=== PATIENT | female | born 1945 | race Caucasian/White ===

== ENCOUNTER 2016-10-31 19:21 | Inpatient (IN) | payer MEDICARE, OTHER ==
[~2016-10-31] VITALS: Ht 165.1 cm; Wt 50.3 kg
--- NOTE | ~2016-10-31 | CN ---
PATIENT NAME:CULLEN FINK MEDICAL RECORD: [id number] : 43 LOCATION:D[id number] ADMIT DATE: 10/31/16 ACCOUNT: [id number] CONSULTING PHYSICIAN: LAM OTTO MD REFERRING PHYSICIAN: JAZMYN JIMENEZ MD DATE OF CONSULTATION: 11/01/2016 CONSULT REQUESTING PHYSICIAN: Jazmyn Jimenez MD REASON FOR CONSULTATION: COPD and right hip fracture. 1 HISTORY OF PRESENT ILLNESS: Ms. Fink is a 71-year-old female who has a history of COPD as well as a history of CA of the lung, probably seeing Dr. Singletary. She was diagnosed a few years ago. She got chemotherapy. The patient was brought into the ER after having a fall and complaining of pain in the right hip. She having a diagnosis of the right hip fracture and she is scheduled for surgery tomorrow. Today, the patient was very weak and lethargic. ABG was done and her CO2 was about 60. REVIEW OF SYSTEMS: Mainly in the history of present illness. PAST MEDICAL HISTORY: 1. Hypertension. 2. History of atrial fibrillation. 3. Peripheral vascular disease. 4. Hyperlipidemia. 5. History of chronic obstructive pulmonary disease. 6. History of lung cancer. 7. Ex-smoker. PAST SURGICAL HISTORY: 1. Cataract surgery. 2. Hysterectomy. 3. Bilateral femoropopliteal bypass surgery and stent placement. ALLERGIES: SHE IS ALLERGIC TO PENICILLIN AND SULFA. PRESENT MEDICATION: She is on aspirin, omega, Plavix, Motrin, sertraline, Halcion. PERSONAL AND SOCIAL HISTORY: The patient is an ex-smoker. She is a nondrinker. FAMILY HISTORY: Significant for cardiovascular disease. PHYSICAL EXAMINATION: GENERAL: Now, the patient is lying comfortably at bed. She is very sleepy, but she is arousable. VITAL SIGNS: The blood pressure is 136/61, pulse is 75, respiration is 18, temperature 98.8, SpO2 of 96% on 2 liters nasal cannula. HEENT: Conjunctivae pink, sclerae nonicteric. NECK: Supple, no JVD. CHEST: Excursion is minimal on both sides. There is no wheeze, no rales. HEART: Rhythm regular, normal sound, no murmur. ABDOMEN: Soft. Bowel sounds present. No hepatosplenomegaly. RECTAL: Deferred. CONSULT REPORT [id number] CULLEN FINK EXTREMITIES: No cyanosis, no clubbing, no pedal edema. SKIN: Warm, normal turgor. CENTRAL NERVOUS SYSTEM: The patient is sleepy, but she is arousable. There are no obvious cranial abnormalities. The patient's PT oriented. LABORATORY DATA: ABG: The pH is 7.2, pCO2 is 59, pO2 is 67, bicarb 24.8. CBC: WBC 11.8, hemoglobin 12.9, hematocrit 38.2, platelet count 252. Sodium 137, potassium 3.6, BUN is 15, creatinine is 0.9. Liver enzymes within normal range. CK is 556, MB is normal. Troponin is normal. IMPRESSION: 1. Acute hypercapnic hypoxic respiratory failure most likely secondary to narcotics as well as underlying chronic obstructive pulmonary disease. 2. Respiratory acidosis secondary to #1. 3. Chronic obstructive pulmonary disease without exacerbation. 4. Fracture of right hip. 5. Alcoholism. 6. History of cancer of the lung. 7. Ex-smoker. RECOMMENDATION: 1. Continue albuterol and ipratropium nebulizer. 2. Start on Brovana and budesonide nebulizer. 3. DVT prophylaxis. 4. The narcotics to minimum to the pain control. 5. Watch for DTs and multivitamin. Being unknown, her chronic status as well as hypercapnia, the patient high risk for perioperative complications with general anesthesia. I will prefer spinal anesthesia compared to general anesthesia, watch closely for CO2 narcosis perioperatively. Dr. Jimenez, once again thanks for involving me in the care of Ms. Fink. TRANSINT:[id number] Voice Confirmation ID: [id number] DOCUMENT ID: [id number] LAM OTTO MD CC: JAZMYN JIMENEZ MD [id number] DICTATION DATE: 11/01/16 1428 BALLOON MAKER: 11/02/16 0254 ADM IN [facility] [address] [place] [address]
[~2016-10-31 19:21] MED LIST: ASPIRIN325 MG PO; BAYER CHEWABLE81 MG PO; EFFEXOR75 MG PO; HALCION0.25 MG PO; HYDROCHLOROTHIA25 MG PO; HYDROCODONE-APA1 TAB PO; IBUPROFEN400 MG PO; K-DUR20 MEQ PO; MEGARED; MOTRIN IB PO; NORCO 5/325 TAB1 TA1 PO; NORVASC5 MG PO; OMEGA-3100 MG PO; PHENERGAN6.25 MG/5 PO; PLAVIX75 MG PO; ZOCOR20 MG PO; ZOFRAN4 MG PO; ZOLOFT50 MG PO
[2016-10-31 20:16] LABS: BASOPHILS 0.5 % (0-2); EOSINOPHILS 1.5 % (0-7); HEMATOCRIT 38.2 % (36.0-48.0); HEMOGLOBIN 12.9 g/dL (12-16); IMMATURE GRANULOCYTES 0.4 % (0-5); LYMPHOCYTES 16.1 % (15-50); MCH 35.6 pg (26.0-34.0); MCHC 33.8 g/dL (31.0-37.0); MCV 105.5 fL (80.0-100.0); MEAN PLATELET VOLUME 9.8 fL (7.4-10.4); MONOCYTES 6.3 % (2-11); NEUTROPHILS 75.2 % (40-80); RBC 3.62 10x6/uL (4.00-5.40); RDW 15.6 % (11.5-14.5); WBC 11.8 10x3/uL (4.8-10.8)
[2016-10-31 20:17] LABS: PLATELET COUNT 252 10x3/uL (130-400)
[2016-10-31 20:33] LABS: ALKALINE PHOSPHATASE 69 U/L (46-116); ALT (SGPT) 28 U/L (10-68); BILIRUBIN - TOTAL 0.33 mg/dL (0.2-1.3); CALC OSMOLALITY 273 mosm/kg (275-300); CALCIUM 9.1 mg/dL (8.5-10.1); CARBON DIOXIDE 25.3 mmol/L (21.0-32.0); CHLORIDE - SERUM 100 mmol/L (98-107); CREATININE - SERUM 0.9 mg/dL (0.6-1.3); GLUCOSE 88 mg/dL (74-106); POTASSIUM - SERUM 3.6 mmol/L (3.5-5.1); PROTEIN - SERUM 7.3 g/dL (6.4-8.2); SODIUM 137 mmol/L (136-145); UREA NITROGEN 15 mg/dL (7-18); eGFR NON AFRICAN AMERICAN 65 mL/min (90-120)
[2016-10-31 20:54] LABS: CREATINE KINASE 556 UL (21-215); MAGNESIUM - SERUM 1.7 mg/dL (1.8-2.4)
[2016-10-31 20:55] LABS: TROPONIN-I < 0.017 ng/mL (0.000-0.060)
[2016-10-31 20:56] LABS: CKMB 8.3 U/L (0.0-3.6)
[2016-10-31 21:28] LABS: UDS - AMPHET NEGATIVE QUAL (NEGATIVE); UDS - BARB NEGATIVE QUAL (NEGATIVE); UDS - BENZO NEGATIVE QUAL (NEGATIVE); UDS - COCAINE NEGATIVE QUAL (NEGATIVE); UDS - METH NEGATIVE QUAL (NEGATIVE); UDS - OPIATE NEGATIVE QUAL (NEGATIVE); UDS - PCP NEGATIVE QUAL (NEGATIVE); UDS - THC NEGATIVE QUAL (NEGATIVE)
--- NOTE | 2016-10-31 22:35 | NUR ---
REC'D PER STRETCHER TO ROOM 2223 A 71 Y/O W/F PER SERVICES DR. JIMENEZ/MARTA WITH FX RT FEMUR NECK AND RT SHOULDER PAIN. ALERT/ORIENTED X3 SALINE LOCK PATENT LEFT ARM. SR UP X2 CALL LIGHT WITHIN REACH CERVANTES TO BS DRAINAGE WITH YELLOW UA. PLACE BED ALARM BOX ON PATIENT AND MARY LEFT OPENED YELLOW BAND ON PT AND YELLOW LABEL ON DOOR FOR FALL PRECAUTIONS.ASSESMENT PER ADMIT PACKET.
[2016-10-31 22:57] VITALS: BP 136/56; BMI 18.6
--- NOTE | 2016-10-31 23:23 | NUR ---
IV FLUIDS OF D5LR STARTED AT 50CC'S/HR FUNERAL ARRANGEMENT DIRECTOR OF DILAUDID STARTED WITH SETTINGS AT 0.2MG Q10MIN W/4MG Q4H L/O INSTRUCTED PATIENT ON USAGE.
[2016-11-01] VITALS: BP 136/56
--- NOTE | 2016-11-01 | NUR ---
NPO AT THIS TIME FOR POSSIBLE SURGERY TOMORROW.
--- NOTE | 2016-11-01 01:55 | NUR ---
EYES CLOSED RESPIRATIONS WITH EASE AND UNLABORED.
[2016-11-01 04:00] VITALS: BP 136/61
--- NOTE | 2016-11-01 04:49 | NUR ---
PATIENT SLIGHTLY CONFUSED AND HARD OF HEARING NOTED. UNSURE OF YEAR KNOWS NAME OF HOSPITAL. 5 LBS FELTON'S TRACTION PLACED TO RT LOWER EXTREMITY. BED ALARM BOX ON.
--- NOTE | 2016-11-01 06:30 | NUR ---
COMPLETE BED BATH DONE FOR SURGHERY PROCEDURE. NO CHANGES IN ASSESSMENT
--- NOTE | 2016-11-01 07:20 | NUR ---
PATIENT RECEIVED IN LEFT LATERAL POSITION IN BED WITH PCP AT BEDSIDE. PATIENT REPOSITIONED IN BED. BUCKS TRACTION TO RIGHT LEG. JOSE ALARM PLACED ON BED AND ALARM TURNED ON. SIDE RAILS UP X3. BED IN LOW POSITION. CALL LIGHT IN REACH.
[2016-11-01 07:58] VITALS: BP 125/51
--- NOTE | 2016-11-01 09:22 | NUR ---
PATIENT IN BED RESTING QUIETLY WITH EYES CLOSED. RESPIRATIONS EVEN AND UNLABORED. WAKES EASY. AT BEDSIDE. SCHEDULED MEDICATION ADMINISTERED. SIDE RAILS UP X2. BED IN LOW POSITION. CALL LIGHT IN REACH.
[2016-11-01 10:10] LABS: APTT 26.8 SECONDS (22.8-39.4); INR 1.03 (0.85-1.17); PROTIME 13.3 SECONDS (11.6-15.0)
--- NOTE | 2016-11-01 10:15 | NUR ---
PATIENT REPOSITOINED IN BED. WELL TOLERATED. DENIES NEEDS. SCD TO LEFT LEG. USE EXPLAINED TO PATIENT AND . STATES UNDERSTANDING. SIDE RAILS UP X2. BED IN LOW POSITION. CALL LIGHT IN REACH.
--- NOTE | 2016-11-01 11:10 | NUR ---
PATIENT IN BED RESTING QUIETLY WITH EYES CLOSED. WAKES EASY. AT BEDSIDE AND SIGNED CONSENT FOR SURGERY SCHEDULED ON 11/02/16. SIDE RAILS UP X3. BED IN LOW POSITION. CALL LIGHT IN REACH. CATTLE CARE WORKER BUTTON IN HAND.
--- NOTE | 2016-11-01 12:00 | NUR ---
VITAL SIGNS ARE FOLLOWS TEMP 96.6, BP 114/45, PULSE 71, RR 20 AND O2 85% ON 4L O2 VIA NASAL CANNULA. O2 INCREASED TO 5L NC. KEESHA MCKENNA AT BEDSIDE. PERIODS OF APNEA NOTED. NARCAN ADMINISTERED AND PCP NOTIFIED. ORDERS FOR AIX SYSTEM ADMINISTRATOR CHANGED AND WITNESSED WITH 2 NURSES. PATIENT NOW MORE ALERT IN BED AND TALKING. O2 INCREASED TO 98% ON 4L OXYGEN VIA NASAL CANNULA
--- NOTE | 2016-11-01 12:05 | NUR ---
CO2 END TIDAL MONITOR PLACED ON PATIENT.
[2016-11-01 12:34] VITALS: BP 114/45
[2016-11-01 15:04] VITALS: Ht 165.1 cm; Wt 50.3 kg
[2016-11-01 16:03] VITALS: BP 100/51
--- NOTE | 2016-11-01 16:20 | NUR ---
PATIENT IN LOW SORENSEN POSITION RESTING WITH EYES CLOSED. RESPIRATIONS EVEN AND UNLABORED. WAKES EASY. SIDE RAILS UP X3. BED IN LOW POSITION. CALL LIGHT IN REACH. JOSE ALARM ON.
[2016-11-01 18:43] LABS: APPEARANCE CLOUDY (CLEAR); BILIRUBIN NEGATIVE (NEGATIVE); COLOR BROWN (YELLOW); GLUCOSE NEGATIVE (NEGATIVE); KETONE NEGATIVE (NEGATIVE); LEUKOCYTE ESTERASE 1+ (NEGATIVE); NITRITE NEGATIVE (NEGATIVE); PROTEIN 2+ mg/dL (NEGATIVE); UROBILINOGEN NORMAL (NORMAL)
[2016-11-01 18:45] LABS: AMORPHOUS SEDIMENT >1+ /lpf (NONE SEEN); BACTERIA MODERATE /hpf (NONE SEEN); EPITHELIAL CELLS 0-5 /hpf (0-5); GRANULAR CAST 0-5 /lpf (NONE SEEN); HYALINE CAST 0-5 /lpf (NONE SEEN)
--- NOTE | 2016-11-01 19:00 | NUR ---
BEDSIDE REPORT RECEIVED AND CARE OF PT ASSUMED. PT LYING IN SEMI SORENSEN'S POSITION WITH BIPAP IN PLACE. IV IN LEFT FA PATENT WITH D5LR INFUSING AT 75 ML / HR. BLENDER OPERATOR OFF AT THIS TIME. CERVANTES CATHETER DRAINING TO GRAVITY WITH CONCENTRATED URINE W/ SEDIMENT IN COLLECTION BAG. BED ALARM IN USE.
[2016-11-01 20:00] VITALS: BP 113/48
--- NOTE | 2016-11-01 20:00 | NUR ---
FELTON'S TRACTION IN USE WITH 5 LB WEIGHT.
[2016-11-02] VITALS (12 sets, daily range): BP systolic 85–148; BP diastolic 40–74
--- NOTE | 2016-11-02 00:05 | NUR ---
PT RESTING QUIETLY AT THIS TIME. BIPAP IN USE. WILL CONTINUE TO MONITOR CLOSLEY. BED ALARM IN USE.
--- NOTE | 2016-11-02 00:06 | NUR ---
NPO STATUS BEGINS NOW FOR AM PROCEDURE.
--- NOTE | 2016-11-02 05:17 | NUR ---
IV LEAKING. REMOVED WITH CATHETER TIP INTACT. RE-SITED TO LEFT AC USING 20 GUAGE CATHETER IN ONE STICK. IV FLUIDS AND HEADING MAKER RE-STARTED.
[2016-11-02 06:33] LABS: BASOPHILS 0.1 % (0-2); EOSINOPHILS 0.5 % (0-7); HEMATOCRIT 33.3 % (36.0-48.0); HEMOGLOBIN 10.6 g/dL (12-16); IMMATURE GRANULOCYTES 0.4 % (0-5); LYMPHOCYTES 7.8 % (15-50); MCHC 31.8 g/dL (31.0-37.0); MEAN PLATELET VOLUME 10.4 fL (7.4-10.4); MONOCYTES 5.9 % (2-11); NEUTROPHILS 85.3 % (40-80); PLATELET COUNT 226 10x3/uL (130-400); RBC 3.03 10x6/uL (4.00-5.40); RDW 15.8 % (11.5-14.5)
[2016-11-02 06:50] LABS: MCV 109.9 fL (80.0-100.0)
[2016-11-02 07:09] LABS: ALBUMIN 3.3 g/dL (3.4-5.0); BILIRUBIN - TOTAL 0.71 mg/dL (0.2-1.3); CALCIUM 8.1 mg/dL (8.5-10.1); CARBON DIOXIDE 31.3 mmol/L (21.0-32.0); PROTEIN - SERUM 6.4 g/dL (6.4-8.2)
[2016-11-02 07:15] LABS: ANION GAP 9.2 mmol/L (8-16); CREATININE - SERUM 1.2 mg/dL (0.6-1.3); POTASSIUM - SERUM 4.5 mmol/L (3.5-5.1)
--- NOTE | 2016-11-02 07:15 | NUR ---
PATIENT RECEIVED ALERT IN LOW SORENSEN POSITION. NO SIGNS OF DISTRESS NOTED. BIPAP IN PLACED. DENIES NEEDS. SIDE RAILS UP X2. BED IN LOW POSITION. CALL LIGHT AND DIRECTOR OF VITAL STATISTICS BUTTON IN REACH.
--- NOTE | 2016-11-02 08:00 | NUR ---
PATIENT ALERT IN BED. RESPIRATIONS EVEN AND UNLABORED. SCHEDULED PO MEDICATION HELD FOR SURGERY. IV MEDICATION ADMINISTERED PER ORDERS. DENIES NEEDS. SIDE RAILS UP X2. BED IN LOW POSITION. CALL LIGHT IN REACH. JOSE ALARM ON.
--- NOTE | 2016-11-02 11:20 | NUR ---
PATIENT ALERT IN HIGH SORENSEN POSITION WITH AT BEDSIDE. SIDE RAILS UP X2. BED IN LOW POSITION. JOSE ALARM ON. CALL LIGHT IN REACH. WOOD EXPERIMENTAL MECHANIC BUTTON IN HAND.
--- NOTE | 2016-11-02 12:55 | NUR ---
PATIENT OFF FLOOR TO SURGERY VIA BED
--- NOTE | 2016-11-02 15:02 | NUR ---
PILLOW BETWEEN PTS ARMS
--- NOTE | 2016-11-02 16:35 | NUR ---
PATIENT BACK TO ROOM FROM PACU VIA BED. NO SIGNS OF DISTRESS NOTED. VITAL SIGNS STABLE. PATIENT ALERT AND TALKING TO FAMILY. DRESSING TO RIGHT HIP CLEAN, DRY AND INTACT. SIDE RAILS UP X2. BED IN LOW POSITION. CALL LIGHT IN REACH. SCDS ON BILATERALLY. JOSE ALARM ON.
--- NOTE | 2016-11-02 16:42 | NUR ---
PT ARRIVED WITH RINGS X [address] NICKOLAS EXPLAINED THE CAUTERY TO THE PT AND THE OPPORTUNITY FOR VALERO FROM THIS EQUIPMENT. THE PT THEN CHOSE TO HAVE THE RINGS CUT OFF. THIS WAS DONE AND THEY WERE HAND DELIVERED TO HER PER NICKOLAS
--- NOTE | 2016-11-02 17:32 | NUR ---
CM: Patient lives at home with spouse. 2 steps into the home. The neighbor Abiodun will transport patient home, Abiodun #[phone] (hears better). EMERGENCY CONTACT: #[phone] (spouse) Bartolo. PCP: Dr Wan. Pharmacy: [facility]. Independent with ADL's. Needs medication management. HHS: None at this time. Spouse is unsure if needs to go home with HHS or in-pt Rehab. DME: Will obtain equipement [facility] upon discharge. Communtiy Services utilized: None at present. Additional services required to return to preadmission environment? Yes. HHS or in-patient Rehab. Can the patient safely return to the preadmission environment? Yes. Has the patient been hospitalized within the prior 30 days at any hospital? No.
--- NOTE | 2016-11-02 18:00 | NUR ---
PATIENT RESTING QUIETLY WITH EYES CLOSED. RESPIRATIONS EVEN AND UNLABORED. VITAL SIGNS STABLE. BIPAP IN PLACED. SIDE RAILS UP X2. BED IN LOW POSITION. CALL LIGHT IN REACH.
--- NOTE | 2016-11-02 23:00 | NUR ---
PATIENT RESTING IN BED WITH EYES CLOSED AND NO VISIBLE SIGNS OF DISTRESS. PATIENT'S BED IN LOWEST POSITION, CALL LIGHT WITHIN REACH, AND BOX ALARM ON AND ATTACHED TO THE PATIENT.
[2016-11-03] VITALS (15 sets, daily range): BP systolic 79–111; BP diastolic 37–61
--- NOTE | 2016-11-03 00:19 | NUR ---
PATIENT SLEEPING COMFORTABLY WITH BIPAP ON. NO NEEDS NOTED AT THIS TIME.
[2016-11-03 05:12] LABS: MCHC 31.6 g/dL (31.0-37.0); MCV 110.8 fL (80.0-100.0); RDW 15.8 % (11.5-14.5)
[2016-11-03 05:14] LABS: HEMOGLOBIN 8.4 g/dL (12-16); RBC 2.4 10x6/uL (4.00-5.40); WBC 7.5 10x3/uL (4.8-10.8)
[2016-11-03 05:15] LABS: HEMATOCRIT 26.6 % (36.0-48.0)
--- NOTE | 2016-11-03 07:10 | NUR ---
REPORT RECEIVED FROM SUPERVISORY TRAINING SPECIALIST NURSE. CALL LIGHT IN REACH.
--- NOTE | 2016-11-03 08:40 | NUR ---
ASSESSMENT COMPLETED. SCDs TO BLE. JOSE MAT ALARM ON. CALL LIGHT IN REACH. WILL CONTINUE WITH PLAN OF CARE.
--- NOTE | 2016-11-03 08:48 | OP ---
PATIENT NAME: CULLEN CHAHAL MEDICAL RECORD: [id number] :44 LOCATION:D.[id number] ADMISSION DATE:10/31/16 SURGEON: CHRIS LOZANO MD DATE OF OPERATION: 11/02/2016 Orthopedic Surgery Operative Note PREOPERATIVE DIAGNOSIS: Displaced right hip fracture. POSTOPERATIVE DIAGNOSIS: Displaced right hip fracture. PROCEDURE: Bipolar endoprosthetic replacement for displaced femoral neck fracture. SURGEON: Chris Lozano MD. ANESTHESIA: General. INTRAOPERATIVE COMPLICATIONS: None. SUMMARY OF PATHOLOGIC FINDINGS: The patient had displaced femoral neck fracture consistent with preoperative radiographs. ESTIMATED BLOOD LOSS: 50 cc. OPERATIVE SUMMARY IN DETAIL: After obtaining the appropriate preoperative orthopedic surgery consent as well as anesthetic consultation, evaluation and clearance, the patient was brought to the operating room and placed on the operating table in supine position. After general laryngeal mask was administered, she was placed in a left lateral decubitus position. All pressure points were well padded to include down leg peroneal pad as well as axillary roll. The patient was held firmly to the operating table using the vacuum pack suction system. Right lower extremity and hip were then prepped and draped in a routine sterile fashion. Curvilinear incision made over the IT band. The IT band was split in line with the fibers of the IT band to reveal gluteus medius and minimus attachment to the greater trochanter. These were reflected anteriorly. The hip capsule was split for a T-type fashion for later reapproximation. A femoral neck cut was made using the femoral neck cutting guide for the Accolade TMZF stem. Femoral head was extracted and the acetabulum was cleared free of all fragments. Serial and sequential reaming and broaching were done for a size 4 Accolade TMZF II stem. This was tamped into place. Trials were undertaken and it was felt that the 44- was the most appropriate. A 44- on the 36 head was snapped together, put in place, the Chopra taper tapped and placed, reduced, taken through range of motion and found to be excellent. Intraoperative radiographs were taken at this time showed good position and placement and reestablishment of leg length. The wound was copiously irrigated multiple times. The hip capsule was closed using #2 Ethibond. This was followed by #5 reapproximation of the gluteus medius and minimus in a transosseous fashion back to the greater trochanter. IT band was closed with #2 Ethibond, this was followed by #1 Vicryl, 2-0 Vicryl and skin galdino. Sterile dressings were applied. The patient was awakened, taken to recovery in stable condition. All final needle and sponge counts were correct. TRANSINT:[id number] Voice Confirmation ID: [id number] DOCUMENT ID: [id number] OPERATIVE REPORT [id number] CULLEN CHAHAL MD, CHRIS EMERY at 0848 CC: [id number] DICTATION DATE: 11/02/16 1532 WARP SCOURING VAT TENDER: 11/02/16 2335 ADM IN [facility] [address] [place] [address]
[2016-11-03] MEDS ORDERED: MEGACE40 MG PO (09:24)
--- NOTE | 2016-11-03 10:17 | NUR ---
AM MEDS ADMINISTERED. HELD BP MEDS D/T BP OF 104/45.
--- NOTE | 2016-11-03 11:58 | NUR ---
SITTING IN CHAIR PER PT.
--- NOTE | 2016-11-03 12:09 | NUR ---
VANCOMYCIN IVPB PER ORDER. WILL START IV AFTERWARDS.
--- NOTE | 2016-11-03 13:05 | NUR ---
C/O PAIN OF 7. NORCO PO. CALL LIGHT IN REACH.
--- NOTE | 2016-11-03 14:21 | NUR ---
PT AOX4 RESP EVEN AND NONLABORED PT HERE FOR RIGHT TOTAL HIP REPLACEMENT IV TO LEFT FOREARM PATENT AND INTACT PT DENIES NEEDS AT THIS TIME SRX2 CALL LIGHT WITHIN REACH WILL CONTINUE TO MONITOR
--- NOTE | 2016-11-03 14:30 | NUR ---
PRBC UNIT 1 INITIATED PER KEESHA GODWIN. BP 80/42. WILL UP TO 150 CC/HR. WILL MONITOR VSS.
--- NOTE | 2016-11-03 16:20 | NUR ---
NO NEEDS VOICED AT THIS TIME. CALL LIGHT IN REACH.
--- NOTE | 2016-11-03 18:10 | NUR ---
BLOOD COMPLETED. NO OTHER CHANGES IN INITIAL ASSESSMENT. CALL LIGHT IN REACH. BP NOW 97/61. JOSE MAT ON. SCDs TO BLE. AT BEDSIDE. CALL LIGHT IN REACH. WILL CONTINUE WITH PLAN OF CARE.
--- NOTE | 2016-11-04 03:48 | NUR ---
PT. IN BED WITH HOB UP FOR COMFORT AND LYING ON HER LEFT SIDE. EYES ARE CLOSED AND RESP. DEEP AND EVEN. IV INFUSING VIA PUMP WITHOUT ANY ALARMS. CALL LIGHT REMAINS WITHIN REACH.
[2016-11-04 04:00] VITALS: BP 102/50
[2016-11-04 05:39] LABS: BASOPHILS 0.2 % (0-2); EOSINOPHILS 0.2 % (0-7); HEMOGLOBIN 9.5 g/dL (12-16); IMMATURE GRANULOCYTES 0.3 % (0-5); LYMPHOCYTES 7.3 % (15-50); MCH 34.4 pg (26.0-34.0); MCHC 32.8 g/dL (31.0-37.0); MONOCYTES 8.9 % (2-11); NEUTROPHILS 83.1 % (40-80); PLATELET COUNT 204 10x3/uL (130-400); RBC 2.76 10x6/uL (4.00-5.40); RDW 16.2 % (11.5-14.5); WBC 8.7 10x3/uL (4.8-10.8)
[2016-11-04 05:43] LABS: MCV 105.1 fL (80.0-100.0)
[2016-11-04 05:57] LABS: ANION GAP 10.1 mmol/L (8-16); CALCIUM 7.7 mg/dL (8.5-10.1); CARBON DIOXIDE 28.6 mmol/L (21.0-32.0)
[2016-11-04 05:58] LABS: CREATININE - SERUM 0.8 mg/dL (0.6-1.3); POTASSIUM - SERUM 3.7 mmol/L (3.5-5.1)
[2016-11-04 07:00] VITALS: BP 117/50
--- NOTE | 2016-11-04 07:00 | NUR ---
REPORT RECEIVED FROM SIGNAL FITTER NURSE. CALL LIGHT IN REACH.
--- NOTE | 2016-11-04 08:57 | NUR ---
PATIENT ALERT IN HIGH SORENSEN POSITION. RESPIRATIONS EVEN AND UNLABORED. SIDE RAILS UP X2. BED IN LOW POSITION. CALL LIGHT IN REACH. DENIES NEEDS.
--- NOTE | 2016-11-04 09:34 | NUR ---
ASSESSMENT COMPLETED. NORCO PO WITH AM MEDS ADMINISTERED. SCDs APPLIED TO BLE. CERVANTES CATH DC'D WITH TIP INTACT. CERVANTES CATH DC'D WITH TIP INTACT. JOSE MAT ON. CALL LIGHT IN REACH. WILL CONTINUE WITH PLAN OF CARE.
--- NOTE | 2016-11-04 11:20 | NUR ---
NO NEEDS VOICED AT THIS TIME. CALL LIGHT IN REACH.
[2016-11-04 12:32] VITALS: BP 141/49
--- NOTE | 2016-11-04 13:35 | NUR ---
IN ROOM. DENIES NEEDS AT THIS TIME. CALL LIGHT IN REACH.
--- NOTE | 2016-11-04 14:21 | NUR ---
Rehab Note- Acute Rehab Prescreen order received. The patinet is post op day #2. Wlll plan on admitting to [facility] Saturday if ready for discharge from the acute hospital. Thank you for this referral! Liv Yi RN Clinical Liaison, [facility] Rehab/[place]
--- NOTE | 2016-11-04 14:51 | NUR ---
ASSISTED TO BR AND BACK TO BED PER GLAZIER APPRENTICE.
--- NOTE | 2016-11-04 14:55 | NUR ---
ASSISTED TO BR AND BACK TO BED PER VOLUNTEER PATIENT REPRESENTATIVE. I HELPED WITH REPOSITIONING HER IN THE BED. STATES PAIN IS A 9. NORCO PO. AT BEDSIDE. CALL LIGHT IN REACH.
[2016-11-04 14:57] VITALS: BP 108/54
--- NOTE | 2016-11-04 16:40 | NUR ---
RESTING WITH EYES CLOSED. RESP EVEN AND UNLABORED. CALL LIGHT IN REACH.
--- NOTE | 2016-11-04 18:32 | NUR ---
REQUESTING PAIN PILL. NORCO PO. NO CHANGES IN INITIAL ASSESSMENT. CALL LIGHT IN REACH. WILL CONTINUE WITH PLAN OF CARE.
--- NOTE | 2016-11-04 19:08 | NUR ---
HAS GONE TO THE BR TWICE AFTER CERVANTES WAS REMOVED.
[2016-11-04 20:00] VITALS: BP 99/48
--- NOTE | 2016-11-04 22:16 | NUR ---
PATIENT RESTING IN BED AND DENIES NEEDS AT THIS TIME. BED IN LOWEST POSITION AND CALL LIGHT WITHIN REACH. ENCOURAGED THE PATIENT TO CALL IF SHE HAS FURTHER NEEDS.
[2016-11-05] VITALS: BP 100/49
--- NOTE | 2016-11-05 03:21 | NUR ---
RESTING WELL AT THIS TIME. NO C/O NOTED. C/L IN REACH AT BEDSIDE.
[2016-11-05 04:00] VITALS: BP 102/55
[2016-11-05 06:17] LABS: BASOPHILS 0.1 % (0-2); EOSINOPHILS 0.4 % (0-7); HEMOGLOBIN 9.2 g/dL (12-16); IMMATURE GRANULOCYTES 0.2 % (0-5); LYMPHOCYTES 9.2 % (15-50); MCHC 34.1 g/dL (31.0-37.0); MEAN PLATELET VOLUME 10.1 fL (7.4-10.4); MONOCYTES 9.4 % (2-11); NEUTROPHILS 80.7 % (40-80); RBC 2.63 10x6/uL (4.00-5.40); RDW 16.2 % (11.5-14.5); WBC 9.1 10x3/uL (4.8-10.8)
[2016-11-05 06:26] LABS: MCV 102.7 fL (80.0-100.0); PLATELET COUNT 255 10x3/uL (130-400)
[2016-11-05 06:47] LABS: CALCIUM 7.9 mg/dL (8.5-10.1); CREATININE - SERUM 0.8 mg/dL (0.6-1.3)
--- NOTE | 2016-11-05 07:05 | NUR ---
PATIENT RECEIVED ALERT IN HIGH SORENSEN POSITION. RESPIRATIONS EVEN AND UNLABORED. SIDE RAILS UP X2. BED IN LOW POSITION. CALL LIGHT IN REACH. DENIES NEEDS. JOSE ALARM ON.
[2016-11-05 07:38] VITALS: BP 131/56
--- NOTE | 2016-11-05 08:47 | NUR ---
PATIENT ALERT IN BED. TOLERATED BREAKFAST WITHOUT DIFFICULTY. SCHEDULED MEDICATION ADMINISTERED. SIDE RAILS UP X2. BED IN LOW POSITION. CALL LIGHT IN REACH. JOSE ALARM ON.
[2016-11-05] MEDS ORDERED: IPRAT-ALBUT 0.5-3 ML UPD (09:35)
[2016-11-05] MEDS ORDERED: BROVANA15 MCG/2 M INH (09:35)
[2016-11-05] MEDS ORDERED: ELIQUIS2.5 MG PO (09:36)
[2016-11-05] MEDS ORDERED: LIBRIUM25 MG PO (09:47)
[2016-11-05] MEDS ORDERED: MULTIPLE VITAMI1 TA1 PO (09:48)
[2016-11-05] MEDS ORDERED: HYDROCODONE-APA1 TAB PO (09:48)
[2016-11-05] MEDS ORDERED: PULMICORT0.5 MG/21 INH (09:49)
--- NOTE | 2016-11-05 10:05 | NUR ---
CM REASSESSMENT NOTE: PATIENT IS DISCHARGING TO IP REHAB TODAY. FAMILY AWARE
[2016-11-05] MEDS ORDERED: ZOCOR20 MG PO (11:08)
--- NOTE | 2016-11-05 11:15 | NUR ---
SITTING UP IN CHAIR AT BEDSIDE VISITING WITH FAMILY. NO SIGNS OF DISTRESS NOTED. DENIES NEEDS. CALL LIGHT IN REACH.
--- NOTE | 2016-11-05 13:25 | NUR ---
ASSISTED BACK TO BED BY PT. JOSE ALARM ON. SIDE RAILS UP X2. BED IN LOW POSITION. CALL LIGHT IN REACH. FAMILY AT BEDSIDE.
[2016-11-05 13:35] VITALS: BP 99/52
--- NOTE | 2016-11-05 14:50 | NUR ---
REPORT CALLED TO REHAB. KEESHA MOREIRA RECEIVED REPORT.
--- NOTE | 2016-11-05 15:01 | NUR ---
[facility]
== END 2016-11-05 15:01 | DRG 469 ==
LOC: D.ER 19:21 → D.MS 21:16
PROVIDERS: Anesthesiology; Emergency Medicine; Orthopaedic Surgery; ADMIT Family Medicine
PROC: 0SRR0JZ Replacement of Right Hip Joint, Femoral Surface with Synthetic Substitute, Open Approach (ICD-10-PCS; principal; 2016-11-02 13:00)
DX: S72.001A Fracture of unspecified part of neck of right femur, initial encounter for closed fracture (principal); J96.02 Acute respiratory failure with hypercapnia; J96.01 Acute respiratory failure with hypoxia; E46 Unspecified protein-calorie malnutrition; Z68.1 Body mass index [BMI] 19.9 or less, adult; C34.90 Malignant neoplasm of unspecified part of unspecified bronchus or lung; E87.2 Acidosis; D62 Acute posthemorrhagic anemia; W18.30XA Fall on same level, unspecified, initial encounter; Z87.891 Personal history of nicotine dependence; J44.9 Chronic obstructive pulmonary disease, unspecified; I10 Essential (primary) hypertension; I73.9 Peripheral vascular disease, unspecified; E78.5 Hyperlipidemia, unspecified; E86.0 Dehydration; F10.20 Alcohol dependence, uncomplicated

== ENCOUNTER 2016-11-05 15:09 | Inpatient (IN) | payer MEDICARE, OTHER ==
[~2016-11-05] VITALS: Ht 165.1 cm; Wt 50.8 kg
[~2016-11-05 15:09] MED LIST changes: +BROVANA15 MCG/2 M INH; +ELIQUIS2.5 MG PO; +IPRAT-ALBUT 0.5-3 ML UPD; +LIBRIUM25 MG PO; +MEGACE40 MG PO; +MULTIPLE VITAMI1 TA1 PO; +PULMICORT0.5 MG/21 INH
--- NOTE | 2016-11-05 15:30 | NUR ---
PATIENT ADMITTED TO REHAB FROM ACUTE FLOOR. DISCHARGE PLANS ARE FOR HER TO RETURN HOME WITH HER SPOUSE. SHE HAS NO DME BUT HER FAMILY SAYS THEY WILL GET WHATEVER SHE NEEDS AT DISCHRGE FROM THE [facility]. BARBARA METCALF IS HER PCP, SHE USES [facility]. SHE IS OF EPISCOPALIAN [place]. WILL CONTINUE TO FOLLOW WITH PATIENT.
[2016-11-05 15:39] VITALS: BP 98/56; BMI 18.6
--- NOTE | 2016-11-05 16:13 | NUR ---
ARRIVED ON FLOOR WITH PERSONAL BELONGINGS. DENIES PAIN. [place] X3. SPEECH CLEAR. OXYGEN 4L VIA NC. DENIES INCREASED SOB AT REST. LUNG SOUNDS DIMINISHED TO ALL LOBES. RT HIP INCISION HAS JERROD AND DEEP PURPLE BRUISING. SEROUS DRAINAGE NOTED FROM AROUND THE JERROD IN RT HIP. RT SHOULDER AND RT UPPER ARM IS DEEP PURPLE ALSO. PT STATES SHE FELL ON RT SIDE AND BRUISED HER ARM AND SHOULDER. HAS SMALL 2X2 CM RED ABRASION TO RT BUTTOCK CHEEK. IT IS SMOOTH ON TOP AND NO DRAINAGE NOTED.
--- NOTE | 2016-11-05 16:38 | NUR ---
SITTING UP IN BED WATCHING TV. NEW DSG APPLIED TO RT HIP. DENIES PAIN AT PRESENT. CALL LIGHT IN REACH
--- NOTE | 2016-11-05 18:16 | NUR ---
SITTING UP IN BED EATING SUPPER. DENIES NEEDS.
[2016-11-05 19:18] VITALS: BP 112/46
--- NOTE | 2016-11-05 21:50 | NUR ---
PT HAS MODERATE AMOUNT OF PINK DRANAGE LEAK OUT OF DRESSING, CHANGE DRESSING, USE WOUND CLEANSER CLEAN WOUND, COVER WITH 4X4 AND BORDERED GAUZE.
--- NOTE | 2016-11-05 22:46 | NUR ---
ASSISTED PT TO BATH ROOM.
--- NOTE | 2016-11-06 01:00 | NUR ---
PT RESTING, EYES CLOSED. BED LOW. CL IN REACH.
--- NOTE | 2016-11-06 02:15 | NUR ---
PT REST QUIETLY IN BED WITH EYE CLOSE, BED IN LOW POSITION, CALL LIGHT WITHIN REACH.
[2016-11-06 06:45] LABS: BASOPHILS 0.1 % (0-2); EOSINOPHILS 1.4 % (0-7); HEMATOCRIT 28.1 % (36.0-48.0); HEMOGLOBIN 9.6 g/dL (12-16); IMMATURE GRANULOCYTES 0.7 % (0-5); MCHC 34.2 g/dL (31.0-37.0); MCV 102.6 fL (80.0-100.0); MEAN PLATELET VOLUME 9.8 fL (7.4-10.4); MONOCYTES 10.1 % (2-11); NEUTROPHILS 72.7 % (40-80); RBC 2.74 10x6/uL (4.00-5.40); RDW 15.9 % (11.5-14.5); WBC 10.5 10x3/uL (4.8-10.8)
--- NOTE | 2016-11-06 06:47 | NUR ---
PT C/O PAIN IN HIP, A SCALE OF 4, PAIN MED GIVEN. MONITOR CLOSELY.
[2016-11-06 06:48] LABS: PLATELET COUNT 315 10x3/uL (130-400)
[2016-11-06 06:51] LABS: ANION GAP 9.7 mmol/L (8-16); CALCIUM 7.8 mg/dL (8.5-10.1); CARBON DIOXIDE 28.3 mmol/L (21.0-32.0); CREATININE - SERUM 0.9 mg/dL (0.6-1.3)
--- NOTE | 2016-11-06 08:07 | NUR ---
SITTING UP IN BED EATING BREAKFAST. IS [place] AND SLOW TO FOLLOW COMMANDS. IS ORIENTED X3 BUT SAYS SOME THINGS THAT DONT RELATE TO TOPIC. STILL HAVING SOME DRAINAGE FROM RT HIP. ISLAND DSG IN PLACE. LEAKAGE IS FROM STAPLE SITES.
[2016-11-06 09:46] VITALS: BP 98/48
[2016-11-06 13:22] VITALS: Ht 165.1 cm; Wt 50.8 kg
[2016-11-06 19:12] VITALS: BP 98/52
--- NOTE | 2016-11-06 19:30 | NUR ---
PT SIT UP IN BED AND WATCH TV. DENIES NEEDS.
--- NOTE | 2016-11-06 21:20 | NUR ---
PT STATE SHE HAS PAIN IN HIP, A SCALE OF 5, PAIN MED GIVEN.
--- NOTE | 2016-11-06 22:27 | NUR ---
PT STATE HER PAIN IN HIP IS THE SAME BEFORE SHE TAKE THE PAIN MED, A SCALE OF 5, CONTINUE MONITOR CLOSELY.
[2016-11-07] VITALS (10 sets, daily range): BP systolic 87–140; BP diastolic 40–73
--- NOTE | 2016-11-07 02:12 | NUR ---
RESPIRATIONS REGULAR AND UNLABORED, NO S/S OF ACUTE DISTRESS. EYES CLOSED.
--- NOTE | 2016-11-07 04:18 | NUR ---
PT REST IN BED, EYE CLOSE, BED LOW, CALL LIGHT WITHIN REACH.
[2016-11-07 05:37] LABS: BASOPHILS 0.3 % (0-2); EOSINOPHILS 1.4 % (0-7); HEMATOCRIT 23.4 % (36.0-48.0); HEMOGLOBIN 7.9 g/dL (12-16); IMMATURE GRANULOCYTES 0.5 % (0-5); LYMPHOCYTES 16.3 % (15-50); MCH 34.6 pg (26.0-34.0); MCHC 33.8 g/dL (31.0-37.0); MCV 102.6 fL (80.0-100.0); MEAN PLATELET VOLUME 9.5 fL (7.4-10.4); MONOCYTES 9.6 % (2-11); NEUTROPHILS 71.9 % (40-80); PLATELET COUNT 294 10x3/uL (130-400); RBC 2.28 10x6/uL (4.00-5.40); RDW 16.3 % (11.5-14.5)
[2016-11-07 05:50] LABS: ANION GAP 11.5 mmol/L (8-16); CALCIUM 7.8 mg/dL (8.5-10.1); CARBON DIOXIDE 27.6 mmol/L (21.0-32.0); CREATININE - SERUM 0.9 mg/dL (0.6-1.3); POTASSIUM - SERUM 3.1 mmol/L (3.5-5.1)
[2016-11-07 06:13] LABS: WBC 7.8 10x3/uL (4.8-10.8)
--- NOTE | 2016-11-07 08:45 | NUR ---
PT RESTING IN BED WITH EYES OPEN CALL LIGHT IN REACH WILL MONITER
--- NOTE | 2016-11-07 11:05 | NUR ---
RESTING QUIETLY IN BED.CL IN REACH.
--- NOTE | 2016-11-07 13:00 | NUR ---
PT 1ST UNIT PRBC STARTED NO PROBLEMS WILL MONITER
--- NOTE | 2016-11-07 14:43 | NUR ---
CARE TEAM MEETING: PATIENT PROGRESSING IN THERAPY. WILL CONTINUE TO FOLLOW WITH PATIENT. TENATIVE DISCHARGE DATE IS 11/13/16. PATIENT WILL BE RA AT NEXT MEETING
--- NOTE | 2016-11-07 15:55 | NUR ---
1ST UNIT PRBC FINISHED
--- NOTE | 2016-11-07 16:00 | NUR ---
PT 2ND UNIT PRBC STARTED
--- NOTE | 2016-11-07 16:50 | NUR ---
PT RESTING IN BED WITH EYES OPEN CALL LIGHT IN REACH WILL MONITER
--- NOTE | 2016-11-07 19:30 | NUR ---
PT IN BED WITH HOB UP FOR COMFORT, RESTING QUIETLY. 02 @ 4L VIA N/C, ALERT & ORIENTED, BED IN LOWEST POSITION AND CALL LIGHT WITHIN REACH.
--- NOTE | 2016-11-07 23:30 | NUR ---
PT RESTING QUIETLY, NO S/S OF ACUTE DISTRESS. RESPIRATIONS REGULAR AND UNLABORED.
--- NOTE | 2016-11-07 23:30 | NUR ---
PT IN BED WITH HOB UP FOR COMFORT, EYES CLOSED, CHEST RISING AND FALLING, 02 @ 4L, BED IN LOWEST POSITION AND CALL LIGHT WITHIN REACH.
--- NOTE | 2016-11-08 03:30 | NUR ---
PT IN BED WITH HOB UP FOR COMFORT, EYES CLOSED, RESPIRATIONS EVEN AND UNLABORED, BED IN LOWEST POSITION AND CALL LIGHT WITHIN REACH.
--- NOTE | 2016-11-08 06:20 | NUR ---
PT IN BED WITH HOB UP FOR COMFORT, EYES CLOSED, CHEST RISING AND FALLING, BED IN LOWEST POSITION AND CALL LIGHT WITHIN REACH.
--- NOTE | 2016-11-08 08:00 | NUR ---
SHIFT ASSMT COMPLETED.DRSG TO RT HIP INTACT.CL IN REACH.
[2016-11-08 08:13] VITALS: BP 145/64
--- NOTE | 2016-11-08 10:50 | RHP ---
PATIENT: CULLEN CHAHAL MEDICAL RECORD: [id number] ACCOUNT: [id number] LOCATION:[facility]1117 : 43 ADMISSION DATE: 11/05/16 REHABILITATION HISTORY AND PHYSICAL EXAMINATION POST ADMISSION PHYSICIAN EXAMINATION Post-admission Physical Examination and History and Physical DATE OF ADMISSION TO THE REHAB: 11/05/2016 ADMITTING DIAGNOSIS: Status post right femoral neck fracture. HISTORY OF PRESENT ILLNESS: The patient is admitted to inpatient rehab for a status post right femoral neck fracture. She is a 71-year-old female that present to ED after having a syncopal episode causing the fall, which she sustained a right hip fracture, her witnessed the event, stated that there was no loss of consciousness. She underwent surgical repair on November 02. She has got a history of lung cancer that has been undergoing chemotherapy. She lives at home with her who was independent with her ADLs and mobility. She is currently standby assist to max assist with ADLs, moderate assist to total assist with her mobility. She and her plan on returning home and getting her back to her prior level of function if possible. The only way that they can do that is of course to complete a short stay here in the rehab. COMORBIDITIES: Include acute hypercapnic hypoxic respiratory failure, COPD, peripheral vascular disease, respiratory acidosis, hypertension, atrial fib, hyperlipidemia, fall at home, alcohol use in the past, syncope and collapse. She is a former smoker. She has also got a recent history of lung cancer. PAST MEDICAL HISTORY: Significant for paresthesias, hypertension, atrial fib, peripheral vascular disease, hyperlipidemia, lung cancer, depression and anxiety. PAST SURGICAL HISTORY: Includes cataracts, hysterectomy, bilateral fem-pop bypass, bilateral lower extremity stents and port placement. ALLERGIES: PENICILLIN AND SULFA. CURRENT MEDICATIONS: Include Zoloft 50 mg daily, multivitamin daily, Plavix 75 mg daily, Norvasc 5 mg daily, Megace 40 mg b.i.d., DuoNeb updrafts p.r.n. She is on hydrocodone 10/325 one to two tabs q. 4 hours p.r.n. pain. Librium 25 mg q.i.d. She is on Pulmicort 0.5 mg b.i.d., Brovana 15 mcg b.i.d. and Eliquis 2.5 mg b.i.d. HABITS: Does have a history of alcohol and tobacco use, but none at this time FAMILY HISTORY: Noncontributory. SOCIAL HISTORY: The patient once again hopes to return home with her and hopefully get back to her prior level of functioning better if possible. REVIEW OF SYSTEMS: GENERAL: Does complain of some weakness. HEENT: She denies cold, cough, or congestion. CARDIOVASCULAR: Denies chest pain. HISTORY AND PHYSICAL [id number] CULLEN CHAHAL PHYSICAL EXAMINATION: VITAL SIGNS: Stable, afebrile. GENERAL: A thin female, in no acute distress, alert upon exam. HEENT: Normocephalic, atraumatic. Mucosa is moist. NECK: Supple. No lymphadenopathy. LUNGS: Coarse breath sounds bilaterally. CARDIOVASCULAR: Regular rate and rhythm. ABDOMEN: Benign. EXTREMITIES: Consistent with hip surgery. NEUROLOGIC: Intact. LABORATORY DATA: Her white count is 10.5, H&H is 9.6 and 28.1 and platelet count is 315. Sodium 139, potassium 3.0, BUN and creatinine of 9 and 0.9 and blood sugar is noted to be 91. ASSESSMENT: This is a 71-year-old female patient admitted to rehab with a working diagnosis of status post femoral neck fracture complicated by history of COPD and lung cancer. The patient has potential to make improvement. We instituted the following multidisciplinary therapies including to, but not limited to physical, occupational, respiratory, speech, nutritional services, prosthetics and orthotics. Given her complex condition and risk for more complications, rehabilitation services cannot be provided at a low level of care such as a prison facility. PLAN: 1. Admit to [facility] rehab for intensive inpatient therapy to include the following disciplines: A. Physical therapy to improve gait, all transfer skills and bed mobility to a modified independent level. B. Occupational therapy to improve activities of daily living to a modified independent level. C. Case management to assist with discharge planning and placement options. D. Nutrition to assist with nutritional needs. E. Rehabilitation nursing to assist in monitoring the patient underlying medical conditions and to assist with any type of bowel or bladder management. 2. The patient's current medication and medical care will be continued. 3. The patient will be placed on standard fall precautions. 4. The patient's estimated length of stay is approximately 7-10 days. 5. We will go ahead and replace her potassium and other electrolytes today and discuss with our care team tomorrow. TRANSINT:[id number] Voice Confirmation ID: [id number] DOCUMENT ID: [id number] SUELLEN XIONG MD at 1050 CC: [id number] DICTATION DATE: 11/06/16 08 MANAGER CREDIT RISK: 11/06/16 1410 ADM IN [place] [id number] [place] [address]
--- NOTE | 2016-11-08 11:12 | NUR ---
Nutrition Follow Up: Chart reviewed. Pt is eating 79% meal avg on a regular diet. Wt stable. +BM 11/06/16. Meds noted including MARGA Butt. Labs reviewed - K+ low. Pt with good po intake at this time. Rec continue current diet. Rec continue appetite stimulant. RD will continue to monitor pt progress.
--- NOTE | 2016-11-08 12:00 | NUR ---
EATING LUNCH.DENIES NEEDS.
--- NOTE | 2016-11-08 13:00 | NUR ---
SITTING UP IN BED DROOLING AND ASLEEP.LIBRIUM WITHELD.
--- NOTE | 2016-11-08 16:00 | NUR ---
SHOWER TAKEN.JUNAID WELL.CAUGHT STANDING WHEN BACK TURNED AND AFTER STATED SHE WOULD NOT GET UP.DRSG TO RIGHT HIP CHANGED.SAT WITH SEROSANGUINEOUS DRAINAGE.SLIGHTLY.CONFUSED.PLACED ON ALARMS.
--- NOTE | 2016-11-08 17:30 | NUR ---
LIBRIUM REFUSED.THINKING APPEARS MORE CLEAR.
--- NOTE | 2016-11-08 19:40 | NUR ---
PT RESTING QUIETLY, SEMI SORENSEN POSITION, EYES CLOSED. NO S/S OF ACUTE DISTRESS.
[2016-11-08 20:05] VITALS: BP 110/72
--- NOTE | 2016-11-08 21:30 | NUR ---
PT REQUESTED ICE CREAM, PT DENIES PAIN, DRESSING INTACT WITHOUT VISIBLE DRAINING TO RIGHT HIP.
--- NOTE | 2016-11-09 00:10 | NUR ---
PT RESTING WITH EYES CLOSED, NO S/S OF ACUTE DISTRESS, RESPIRATIONS REGULAR AND UNLABORED.
--- NOTE | 2016-11-09 02:21 | NUR ---
PT EATING ICE CREAM AND POTATOE CHIPS WATCHING TV. PT DENIES PAIN OR ANY OTHER NEEDS.
[2016-11-09 06:52] LABS: BASOPHILS 0.1 % (0-2); EOSINOPHILS 0.7 % (0-7); HEMATOCRIT 31.7 % (36.0-48.0); HEMOGLOBIN 10.9 g/dL (12-16); IMMATURE GRANULOCYTES 0.9 % (0-5); MCH 33.6 pg (26.0-34.0); MCHC 34.4 g/dL (31.0-37.0); MCV 97.8 fL (80.0-100.0); MEAN PLATELET VOLUME 9.2 fL (7.4-10.4); MONOCYTES 7.3 % (2-11); PLATELET COUNT 335 10x3/uL (130-400); RBC 3.24 10x6/uL (4.00-5.40); RDW 18.5 % (11.5-14.5)
--- NOTE | 2016-11-09 06:52 | NUR ---
pt resting quietly, no s/s of distress.
[2016-11-09 07:05] LABS: ANION GAP 8.3 mmol/L (8-16); CALCIUM 8.4 mg/dL (8.5-10.1); CARBON DIOXIDE 28.4 mmol/L (21.0-32.0); CREATININE - SERUM 0.9 mg/dL (0.6-1.3); POTASSIUM - SERUM 3.7 mmol/L (3.5-5.1)
--- NOTE | 2016-11-09 09:00 | NUR ---
Verbalized name and , alert and oriented times three. Oxygen in place ans connected to tank at this time, O2 sat 90%, work order called to check awall oxygen. No distress assessed.
[2016-11-09 10:48] VITALS: BP 112/62
--- NOTE | 2016-11-09 13:12 | NUR ---
REFERRAL FAXED TO [facility] AND IF NO BED AVAILABLE 2ND CHOICE [address] [facility] PER SPOUSE REQUEST.
--- NOTE | 2016-11-09 14:10 | NUR ---
awake in bed, Oxygen connected back to wall O2 sat 90%, dressing remain clean, dry and intact to right hip.
--- NOTE | 2016-11-09 18:37 | NUR ---
Lying in bed awake, no distress noted. Verbalized no needs. Call light within reach.
--- NOTE | 2016-11-09 19:40 | NUR ---
ASSISTED PT TO BATHROOM AND BACK TO ROOM.
--- NOTE | 2016-11-10 01:04 | NUR ---
PT SIT IN BED WATCH TV.
[2016-11-10 02:25] VITALS: BP 124/61
--- NOTE | 2016-11-10 03:16 | NUR ---
PT. IN BED WITH HOB UP FOR COMFORT WITH EYES CLOSED AND RESP. EVEN. O2 ON VIA N/C. CALL LIGHT WITHIN REACH.
--- NOTE | 2016-11-10 03:43 | NUR ---
PT REST IN BED, EYE CLOSE, BED IN LOW POSITION, CALL LIGHT WITHIN REACH.
--- NOTE | 2016-11-10 09:10 | NUR ---
SITTING UP IN BED. BULKY DSG TO RT HIP IN PLACE WITH LIGHT SEROUS DRAINAGE NOTED TO DSG. IS ALERT BUT WHEN ASKED WHAT SEASON IT WAS SHE KEPT GIVING ME THE TIME OF DAY AND INCORRECT DAY OF THE WEEK. PAIN CONTROLLED. DENIES CURRENT NEEDS. CALL LIGHT IN REACH
[2016-11-10 10:34] VITALS: BP 135/72
--- NOTE | 2016-11-10 13:29 | NUR ---
LAYING IN BED WATCHING TV. HAS BEEN UP WITH MOD ASST TO BATHROOM. DENIES INCREASED SOB. IS OXYGEN DEPENDENT. DSG IN PLACE TO RT HIP. CALL LIGHT IN REACH
--- NOTE | 2016-11-10 16:59 | NUR ---
RESTING QUIETLY IN BED. EYES CLOSED. RESP EFFORT NOT LABORED. CALL LIGHT IN HAND
[2016-11-10 19:55] VITALS: BP 105/47
--- NOTE | 2016-11-10 20:59 | NUR ---
PT HS MEDS ADMINISTERED. PT DENIES NEEDS. WCTM. BED LOW. CL IN REACH.
--- NOTE | 2016-11-11 03:43 | NUR ---
PT RESTING, EYES CLOSED. BED LOW. CL IN REACH.
--- NOTE | 2016-11-11 06:10 | NUR ---
PT AM MEDS ADMINISTERED. PT SHOWERED. PT DENIES NEEDS. BED LOW. CL IN REACH.
--- NOTE | 2016-11-11 08:13 | NUR ---
SITTING UP IN BED EATING BREAKFAST. DENIES NEEDS
[2016-11-11 09:46] VITALS: BP 95/45
--- NOTE | 2016-11-11 14:59 | NUR ---
RESTING QUIETLY IN BED. LIKES HEAD OF BED ELEVATED UP HIGH. OXYGEN DEPENDENT. CALL LIGHT IN REACH
--- NOTE | 2016-11-11 18:50 | NUR ---
RESTING QUIETLY IN BED. PAIN MEDS GIVEN ORDERED AND REQUESTERD. CALL LIGHT IN REACH. BED ALARM IN USE.
--- NOTE | 2016-11-11 19:40 | NUR ---
PT SIT IN BED WATCH TV.
--- NOTE | 2016-11-11 21:30 | NUR ---
PT C/O THROAT DRY, PREFER ICE CREAM, AND BRING ICE CREAM, AND STATE ICE CREAM CAN HER DRY THROAT.
--- NOTE | 2016-11-11 23:35 | NUR ---
PT C/O PAIN IN HIP, A SCALE OF 5, PAIN MED GIVEN. CONTINUE MONITOR CLOSELY.
--- NOTE | 2016-11-12 00:20 | NUR ---
PT RESTING QUIETLY, EYES CLOSED, RESPIRATIONS REGULAR AND UNLABORED. NO S/S OF ACUTE DISTRESS.
--- NOTE | 2016-11-12 00:34 | NUR ---
ASSISTED PT TO BATHROOM AND BACK TO BED.
[2016-11-12 00:49] VITALS: BP 94/44
--- NOTE | 2016-11-12 04:00 | NUR ---
RESTING QUIETLY, EYES CLOSED.
--- NOTE | 2016-11-12 04:12 | NUR ---
PT REST QUIETLY IN BED, EYE CLOSE, BED LOW, CALL LIGHT WITHIN REACH.
[2016-11-12 06:51] LABS: BASOPHILS 0.2 % (0-2); EOSINOPHILS 0.8 % (0-7); HEMATOCRIT 33.3 % (36.0-48.0); HEMOGLOBIN 10.7 g/dL (12-16); LYMPHOCYTES 12.5 % (15-50); MCH 32.6 pg (26.0-34.0); MCHC 32.1 g/dL (31.0-37.0); MCV 101.5 fL (80.0-100.0); MEAN PLATELET VOLUME 9.2 fL (7.4-10.4); MONOCYTES 4.3 % (2-11); NEUTROPHILS 81.2 % (40-80); PLATELET COUNT 402 10x3/uL (130-400); RBC 3.28 10x6/uL (4.00-5.40); RDW 17.7 % (11.5-14.5); WBC 10.5 10x3/uL (4.8-10.8)
[2016-11-12 07:15] LABS: ANION GAP 8.4 mmol/L (8-16); CALCIUM 8.6 mg/dL (8.5-10.1); CARBON DIOXIDE 28.8 mmol/L (21.0-32.0); CREATININE - SERUM 0.9 mg/dL (0.6-1.3); POTASSIUM - SERUM 4.2 mmol/L (3.5-5.1)
[2016-11-12 08:37] VITALS: BP 98/48
--- NOTE | 2016-11-12 13:59 | NUR ---
REFERRAL FAXED TO [facility] WITH CONFORMATION RECIEVED
--- NOTE | 2016-11-12 16:04 | NUR ---
Patient lying in bed, compliant with medication. Complaints of pain 5/10 on pain scale, PRN norco given. Patient resting calmly, o2 at 3 lpm. Bed low call light within reach, rails up X2. Continue to monitor
--- NOTE | 2016-11-12 18:05 | NUR ---
Patient lying in bed, compliant with medication. Complaints of pain 5/10 on pain scale, PRN norco given. Patient resting calmly, o2 at 3 lpm. Bed low call light within reach, rails up X2, Continue to monitor
--- NOTE | 2016-11-12 20:00 | NUR ---
PT IN BED WITH HOB UP FOR COMOFORT. RESTING QUIETLY. PT CODE STATUS IS DNR. 02 @ 3L VIA N/C. STAND BY ASSIST. CONTINENT OF BOWEL AND BLADDER. D/C ORDERED AND SCHEDULED FOR 11/13/16 TO [facility]. BED ALARM ON. BED IN LOWEST POSITION AND CALL LIGHT WITHIN REACH.
[2016-11-12 21:12] VITALS: BP 126/82
--- NOTE | 2016-11-13 | NUR ---
PT IN BED WITH HOB UP FOR COMFORT. EYES CLOSED. CHEST RISING AND FALLING. 02 @ 3L VIA N/C. BE DIN LOWEST POSITION AND CALL LIGHT WITHIN REACH.
--- NOTE | 2016-11-13 00:03 | NUR ---
ASSISTED PT TO BATHROOM IN W/C WITH MOD ASSIST WITH TRANSFER AND TOILETING. PT DENIES PAIN, RESPIRATIONS REGULAR AND UNLABORED.
--- NOTE | 2016-11-13 04:00 | NUR ---
PT IN BED WITH HOB UP FOR COMFORT. EYES CLOSED. RESPIRATIONS EVEN AND UNLABORED. BED IN LOWEST POSITION AND CALL LIGHT WITHIN REACH.
--- NOTE | 2016-11-13 07:30 | NUR ---
RESTING QUIETLY IN BED. EYES CLOSED CALL LIGHT IN REACH. NO S/S DISTRESS OXYGEN IN PLACE
[2016-11-13 09:24] VITALS: BP 90/54
--- NOTE | 2016-11-13 10:49 | NUR ---
SITTING UP ON SIDE OF BED TALKING TO . DENIES NEEDS.
--- NOTE | 2016-11-13 11:29 | NUR ---
PATIENT DISCHARGING TO [facility]. NO DME OR HH NEEDED AT THIS TIME. APPOINTMENTS: DR. JIMENEZ WILL BE MADE AT TIME OF DISCHARGE FROM FACILITY. DR. LOZANO 11/19/16 @ 9:30, DR. OLIVER 01/02/17 @ 9:40. PATIENT CHOICE FOR SNF AND [facility] FORM SIGNED, EXPLAINED AND FILED IN CHART. PATIENT WILL TRANSPORT VIA FACILITY VAN. SPOUSE AT BEDSIDE.
== END 2016-11-13 14:00 | DRG 559 ==
LOC: D.REHAB 15:09
PROVIDERS: ADMIT Emergency Medicine
DX: S72.001D Fracture of unspecified part of neck of right femur, subsequent encounter for closed fracture with routine healing (principal); J96.02 Acute respiratory failure with hypercapnia; J96.01 Acute respiratory failure with hypoxia; E87.2 Acidosis; W19.XXXD Unspecified fall, subsequent encounter; J44.9 Chronic obstructive pulmonary disease, unspecified; I73.9 Peripheral vascular disease, unspecified; I10 Essential (primary) hypertension; I48.91 Unspecified atrial fibrillation; E78.5 Hyperlipidemia, unspecified; R55 Syncope and collapse; Z85.118 Personal history of other malignant neoplasm of bronchus and lung; Z87.891 Personal history of nicotine dependence; F10.10 Alcohol abuse, uncomplicated

== ENCOUNTER 2016-11-15 12:06 | Emergency (ER) | payer MEDICARE, OTHER ==
[2016-11-06 13:22] VITALS: BMI 18.6
== END 2016-11-15 13:38 | disposition home or self-care (01) ==
LOC: D.ER 12:06
DX: S52.502A Unspecified fracture of the lower end of left radius, initial encounter for closed fracture (principal); W19.XXXA Unspecified fall, initial encounter; Y93.89 Activity, other specified; Y92.129 Unspecified place in nursing home as the place of occurrence of the external cause

== ENCOUNTER → 2016-11-16 13:10 | Outpatient (CLI) | payer MEDICARE, OTHER ==
[2016-11-06 13:22] VITALS: BMI 18.6
== END | disposition home or self-care (01) ==
LOC: D.US 13:10
DX: M79.89 Other specified soft tissue disorders (principal)

== ENCOUNTER 2016-12-21 17:32 | Emergency (ER) | payer MEDICARE, OTHER ==
[2016-11-06 13:22] VITALS: BMI 18.6
== END 2016-12-21 19:23 | disposition home or self-care (01) ==
LOC: D.ER 17:32
DX: M25.551 Pain in right hip (principal); W19.XXXA Unspecified fall, initial encounter; Y93.89 Activity, other specified; Y92.129 Unspecified place in nursing home as the place of occurrence of the external cause; I10 Essential (primary) hypertension

== ENCOUNTER 2017-01-15 12:17 | Inpatient (IN) | payer MEDICARE, OTHER ==
[~2017-01-15] VITALS: Ht 165.1 cm; Wt 57.3 kg
[2017-01-15 14:40] LABS: BASOPHILS 0.5 % (0-2); EOSINOPHILS 3.3 % (0-7); HEMATOCRIT 33.3 % (36.0-48.0); HEMOGLOBIN 10.6 g/dL (12-16); IMMATURE GRANULOCYTES 0.2 % (0-5); LYMPHOCYTES 14.1 % (15-50); MCH 32.9 pg (26.0-34.0); MCHC 31.8 g/dL (31.0-37.0); MCV 103.4 fL (80.0-100.0); MEAN PLATELET VOLUME 9.1 fL (7.4-10.4); MONOCYTES 8.8 % (2-11); NEUTROPHILS 73.1 % (40-80); PLATELET COUNT 330 10x3/uL (130-400); RBC 3.22 10x6/uL (4.00-5.40); RDW 14.1 % (11.5-14.5); WBC 6.2 10x3/uL (4.8-10.8)
[2017-01-15 14:46] LABS: ALBUMIN 3.4 g/dL (3.4-5.0); ANION GAP 13.7 mmol/L (8-16); BILIRUBIN - TOTAL 0.34 mg/dL (0.2-1.3); CALCIUM 9.2 mg/dL (8.5-10.1); CARBON DIOXIDE 28.4 mmol/L (21.0-32.0); POTASSIUM - SERUM 4.1 mmol/L (3.5-5.1); PROTEIN - SERUM 6.6 g/dL (6.4-8.2)
--- NOTE | 2017-01-15 23:15 | NUR ---
PT ARRIVED TO ROOM FROM ER, V/S ARE 98.9 , 111/47, 68 , 15, O2 AT 91%, HAD RESP COME AND PT WAS PLACED ON OXIMIZER 11L PT IS A&O X3, UP ADLIB TO BSC. STARTED N/S TO PT IV ON RT FOREARM. BED IN LOW POSITION, CALL LIGHT IN REACH
[2017-01-16] VITALS (7 sets, daily range): BP systolic 95–116; BP diastolic 46–54; Ht 165.1 cm; Wt 57.3 kg
--- NOTE | 2017-01-16 08:47 | NUR ---
AT BEDSIDE. ASSESSMENT PERFORMED PER FLOWSHEET. SCHEDULED MEDICATIONS ADMINISTERED AT THIS TIME. BP MEDICATION HELD DUE TO DIASTOLIC PRESSURE. JOSE MAT ALARM APPLIED TO PT FOR FALL RISK PRECAUTIONS. DOOR OPEN AND CALL LIGHT IN REACH. WILL CONTINUE WITH PLAN OF CARE.
--- NOTE | 2017-01-16 11:10 | NUR ---
LABORER [employer] PLACED ON PT AND SCD'S WILL BE APPLIED ONCE PT AGREES TO PUT ON A HOSPITAL GOWN.
--- NOTE | 2017-01-16 13:50 | NUR ---
Patient Name: CULLEN CHAHAL Admission Status: ER Accout number: [id number] Admission Date: 01-15-2017 : 1945 Admission Diagnosis: Attending: MAGGY Current LOS: 1 Anticipated DC Date: 01-21-2017 Planned Disposition: Home with Home Health Primary Insurance: MEDICARE A & B Discharge Planning Comments: CM MET WITH PATIENT REGARDING D/C NEEDS AND PLANS. SPOUSE STATED HIS WAS AT [facility] RIGHT BEFORE ADMIT TO THIS HOSPITAL. [facility] DISCHARGED PATIENT BEFORE THEY CAME TO HOSPITAL PER SPOUSE. PATIENT HAS 1 STEP TO ENTER HOME AND NO STAIRS INSIDE HOME. PATIENT NEEDS HELP WITH ADL'S AND SPOUSE IS SETTING UP RIGHT AT HOME BEFORE DISCHARGE. SPOUSE SIGNED THE [facility]ACEY FORM WITH [facility]. PATIENT HAS A WHEELCHAIR, WALKER, SHOWER CHAIR, AND RAISED TOILET SEAT AT HOME. PATIENTS PCP IS DR. JIMENEZ AND PHARMACY IS T[facility] AT THE [facility]. CM WILL CONTINUE TO FOLLOW PATIENT WITH D/C NEEDS AND PLANS. PCP DR. BARBARA CRAWFORD AT [facility]- [phone] SAKINA (SPOUSE) [phone] [facility]- [phone] RIGHT AT HOME- (SAURABH) [phone] Residential Builder: Ena Wong Is the patient Alert and Oriented? Yes 0 * How many steps to enter\exit or inside your home? 1 0 * PCP DR. JIMENEZ 0 * Pharmacy [facility] 0 * Preadmission Environment Care Home Facility 0 * Facility Name [facility] 0 * ADLs Partial Dependent 0 * Partial ADLs (Assistance needed) Ambulation Bathing Dressing Medication Management Toileting Transfers 0 * Equipment Elevated [place] Seat Shower Chair Walker Wheelchair 0 * List name and contact numbers for known caregivers / representatives who currently or will assist patient after discharge: SAKINA (SPOUSE) [phone] 0 * Community resources currently utilized None 0 * Additional services required to return to the preadmission environment? Yes 0 * Can the patient safely return to the preadmission environment? Yes 0 * Has this patient been hospitalized within the prior 30 days at any hospital? No 0 Grand Total: 0
--- NOTE | 2017-01-16 19:20 | NUR ---
PT IS LYING IN BED WITH EYES CLOSED, EASILY AWAKEN BY SOUND OF VOICE OR TOUCH. PT IV IN RT FOREARM STATES OCCLUDED, INSTRUCTED PT TO KEEP ARM FLAT. PT IS STILL CONFUSED TO WHY HERERE ORIENT PT TO PLACE AND TIME. PT BED IN LOW POSITION, CALL LIGHT IN REACH
[2017-01-17] VITALS: BP 96/56
[2017-01-17 04:00] VITALS: BP 102/58
--- NOTE | 2017-01-17 07:25 | NUR ---
SLEEPING AT THIS TIME WITH RESPIRATIONS EVEN AND NON LABORED. CALL LIGHT IN REACH AND BED ALARM ON. WILL CONTINUE WITH PLAN OF CARE.
[2017-01-17 08:18] VITALS: BP 102/47
--- NOTE | 2017-01-17 09:43 | NUR ---
SCHEDULED MEDICATIONS ADMINISTERED AT THIS TIME. ASSESSMENT PERFORMED PER FLOWSHEET. PT AWAKE AND ALERT. OXYGEN ON 11L VIA OXYMIZER. CALL LIGHT IN REACH, WILL CONTINUE WITH PLAN OF CARE.
--- NOTE | 2017-01-17 12:02 | NUR ---
ARM BOARD APPLIED TO RIGHT AC IV AT THIS TIME. AT BEDSIDE. BED ALARM ON AND CALL LIGHT IN REACH. WILL CONTINUE WITH PLAN OF CARE.
[2017-01-17 12:49] VITALS: BP 90/49
[2017-01-17 16:10] VITALS: BP 101/52
[2017-01-17 20:00] VITALS: BP 78/38
--- NOTE | 2017-01-18 01:02 | NUR ---
ASSESSED AT THE BEGINNING OF THE SHIFT. PT IS ALERT AND ORIENTED, WITH JUST A LITTLE CONFUSION AT TIMES. HER LEFT WRIST IS IN A BRACE FROM A FRACTURE AND SHE HAS A DRESSING TO HER RIGHT HIP FROM ORIF. O2 IS AT 11 ON AN OXIMIZER AND SHE HAS THE HOB UP 30 DEGREES. TELEMETRY IS SHOWING SINUS RHYTHM AND WE ARE ASSISTING HER UP TO THE BEDSIDE COMMODE, AND TURNING HER PER PROTOCOL SHE HAS SCD'S AND THE BED IS LOW, RAILS UP X'S 2 WITH THE CALL LIGHT AT HAND.
[2017-01-18 04:00] VITALS: BP 92/49
[2017-01-18 06:24] LABS: BASOPHILS 0.1 % (0-2); EOSINOPHILS 0 % (0-7); HEMATOCRIT 30.8 % (36.0-48.0); IMMATURE GRANULOCYTES 0.4 % (0-5); LYMPHOCYTES 9.6 % (15-50); MCH 32.6 pg (26.0-34.0); MCHC 32.5 g/dL (31.0-37.0); MCV 100.3 fL (80.0-100.0); MONOCYTES 2.2 % (2-11); NEUTROPHILS 87.7 % (40-80); PLATELET COUNT 342 10x3/uL (130-400); RBC 3.07 10x6/uL (4.00-5.40); RDW 13.8 % (11.5-14.5); WBC 6.8 10x3/uL (4.8-10.8)
[2017-01-18 06:51] LABS: CALCIUM 8.5 mg/dL (8.5-10.1); CARBON DIOXIDE 29.7 mmol/L (21.0-32.0); CREATININE - SERUM 1.1 mg/dL (0.6-1.3); PHOSPHOROUS 3.4 mg/dL (2.5-4.9); POTASSIUM - SERUM 3.7 mmol/L (3.5-5.1)
--- NOTE | 2017-01-18 07:00 | NUR ---
REPORT RECIEVED ASSUMED CARE. PATIENT IN BED WITH IV INTACT. NO COMPLAINTS. OXIMIZER ON. CALL LIGHT WITHIN REACH.
[2017-01-18 08:55] VITALS: BP 97/37
[2017-01-18 13:07] VITALS: BP 121/52
--- NOTE | 2017-01-18 14:25 | NUR ---
Nutrition Follow Up: Chart reviewed. Pt is eating 67% meal avg on an AHA diet. No BM since admit. Meds noted including Megace. Labs reviewed. Rec continue current diet. RD following.
--- NOTE | 2017-01-18 15:00 | NUR ---
PATIENT IN BED WITH NO COMPLAINTS. FAMILY AT BEDSIDE. CALL LIGHT WITHIN REACH.
[2017-01-18 16:18] VITALS: BP 95/43
--- NOTE | 2017-01-18 18:55 | NUR ---
PATIENT IN BED WITH IV INTACT. NO COMPLAINTS. OXIMIZER ON. BED ALARM ON. CALL LIGHT WITHIN REACH.
[2017-01-18 20:00] VITALS: BP 90/41
[2017-01-19] VITALS: BP 102/49
[2017-01-19 04:00] VITALS: BP 103/48
[2017-01-19 05:57] LABS: BASOPHILS 0.1 % (0-2); EOSINOPHILS 0.1 % (0-7); HEMATOCRIT 29.5 % (36.0-48.0); HEMOGLOBIN 9.8 g/dL (12-16); IMMATURE GRANULOCYTES 0.5 % (0-5); LYMPHOCYTES 8.6 % (15-50); MCHC 33.2 g/dL (31.0-37.0); MCV 99.3 fL (80.0-100.0); MEAN PLATELET VOLUME 8.8 fL (7.4-10.4); MONOCYTES 2.6 % (2-11); NEUTROPHILS 88.1 % (40-80); PLATELET COUNT 323 10x3/uL (130-400); RBC 2.97 10x6/uL (4.00-5.40); RDW 13.9 % (11.5-14.5); WBC 7.4 10x3/uL (4.8-10.8)
[2017-01-19 06:15] LABS: ANION GAP 11.3 mmol/L (8-16); CARBON DIOXIDE 30.1 mmol/L (21.0-32.0); CREATININE - SERUM 0.9 mg/dL (0.6-1.3); POTASSIUM - SERUM 3.4 mmol/L (3.5-5.1)
--- NOTE | 2017-01-19 07:31 | NUR ---
SLEEPING, BREATHING EVEN UNLABORED, BREATHING TREATMENT ON AT THIS TIME, BED LOWEST POSITION, CALL LIGHT IN REACH, WILL CONTINUE TO MONITOR
[2017-01-19 09:13] VITALS: BP 93/41
--- NOTE | 2017-01-19 10:30 | NUR ---
MONITORS CALLED TO INFORM ME PTS HR WAS 162, WHEN CHECKING ON HER SHE WAS VOMITING 150 CC CAME UP, JASON GIVEN, CALLED MONITOR TO RECHECK HR SHE WAS AT 104
--- NOTE | 2017-01-19 13:00 | NUR ---
RESPIRATIONS EVEN AND NON LABORED. OXYGEN ON 11L OXYMIZER. AT BEDSIDE. WILL CONTINUE WITH PLAN OF CARE.
[2017-01-19 13:11] VITALS: BP 106/46
[2017-01-19 18:05] VITALS: BP 107/48
[2017-01-19 20:00] VITALS: BP 78/35
[2017-01-20] VITALS: BP 89/49
[2017-01-20 04:00] VITALS: BP 81/41
[2017-01-20 05:59] LABS: ANION GAP 10.7 mmol/L (8-16); CALCIUM 8.1 mg/dL (8.5-10.1); CREATININE - SERUM 1.1 mg/dL (0.6-1.3); MAGNESIUM - SERUM 1.7 mg/dL (1.8-2.4); POTASSIUM - SERUM 3.7 mmol/L (3.5-5.1)
[2017-01-20 06:02] LABS: PHOSPHOROUS 2.1 mg/dL (2.5-4.9)
--- NOTE | 2017-01-20 07:30 | NUR ---
RESTING, BREATHING EVEN AND UNLABORED, AROUSES TO VOICE, DENIES NEEDS, BED LOWEST POSITION, CALL LIGHT IN REACH, WILL CONTINUE TO MONITOR
[2017-01-20 09:12] VITALS: BP 111/54
--- NOTE | 2017-01-20 15:30 | NUR ---
PT RESTING IN BED WITH NO COMPLAINTS OF PAIN OR DISCOMFORT AT THIS TIME. BED IN LOW POSITION AND CALL LIGHT WITHIN REACH. WILL CONTINUE TO MONITOR.
--- NOTE | 2017-01-20 19:30 | NUR ---
RECIEVED SHIFT REPORT. PT IS LYING IN BED. ALERT AND ORIENTED AND ABLE TO VERBALIZE NEEDS. IV IS PATENT AND FLUIDS ARE RUNNING PER ORDER. PT IS AMBULATORY WITH ASSISTANCE. O2 @ 10 PER OXIMIZER. PT DENIES ANY PAIN AT THIS TIME. NO NEEDS ARE VERBALIZED AT THIS TIME. WILL CONTINUE TO MONITOR. SIDE RAILS ARE UP X 2. BED IS IN LOWEST POSITION. CALL LIGHT IS WITHIN REACH.
[2017-01-20 20:00] VITALS: BP 111/51
--- NOTE | 2017-01-20 20:40 | NUR ---
SHIFT ASSESSMENT COMPLETED. NIGHT MEDS GIVEN WITH NO PROBLEMS. NO NEEDS ARE VOICED. WILL MONITOR. SIDE RAILS X 2. BED LOW. CALL LIGHT IN REACH.
[2017-01-21 04:00] VITALS: BP 122/49
[2017-01-21 05:56] LABS: BASOPHILS 0.1 % (0-2); EOSINOPHILS 0.1 % (0-7); HEMATOCRIT 31.4 % (36.0-48.0); HEMOGLOBIN 10.3 g/dL (12-16); IMMATURE GRANULOCYTES 0.6 % (0-5); MCH 33.1 pg (26.0-34.0); MCHC 32.8 g/dL (31.0-37.0); MEAN PLATELET VOLUME 9.1 fL (7.4-10.4); MONOCYTES 2.4 % (2-11); NEUTROPHILS 87.8 % (40-80); PLATELET COUNT 367 10x3/uL (130-400); RBC 3.11 10x6/uL (4.00-5.40); RDW 14.2 % (11.5-14.5); WBC 8.9 10x3/uL (4.8-10.8)
[2017-01-21 06:14] LABS: ANION GAP 10.3 mmol/L (8-16); CALCIUM 8.2 mg/dL (8.5-10.1); CARBON DIOXIDE 30.5 mmol/L (21.0-32.0); POTASSIUM - SERUM 3.8 mmol/L (3.5-5.1)
--- NOTE | 2017-01-21 07:45 | NUR ---
PT ASSESSMENT COMPLETE NO ACUTE DISTRESS NOTED VOICES ALL NEEDS TO STAFF ON OXYMIZER AT 10 LPM. SEE FLOW SHEET FOR FULL ASSESSMENT
[2017-01-21 08:25] VITALS: BP 111/55
--- NOTE | 2017-01-21 13:59 | NUR ---
RESTING QUIETLY IN BED. RESP EVEN,NONLABORED.O2 10L PER OXIMIZER IN USE. DENIES ANY NEEDS AT PRESENT.
--- NOTE | 2017-01-21 14:34 | NUR ---
PT RESTING IN BED HAS NO DISTRESSNOTED HAD BUBBLE STUDY ECHO TODAY ALL ADLS PER STAFF ASSIST.
[2017-01-21 16:15] VITALS: BP 135/57
[2017-01-21 19:00] VITALS: BP 106/49
--- NOTE | 2017-01-21 19:30 | NUR ---
RECIEVED SHIFT REPORT. PT IS LYING IN BED. ALERT AND ORIENTED AND ABLE TO VERBALIZED NEEDS. PT IS AMBULATORY WITH ASSITANCE. IV IS PATENT AND FLUIDS ARE RUNNING PER ORDER. O2 @ 10 PER OXIMIZER. PT DENIES ANY PAIN AT THIS TIME. NO NEEDS ARE VERBALIZED AT THIS TIME. WILL CONTINUE TO MONITOR. SIDE RAILS ARE UP X 2. BED IS IN LOWEST POSITION. CALL LIGHT IS WITHIN REACH.
--- NOTE | 2017-01-21 20:18 | NUR ---
SHIFT ASSESSMENT COMPLETED. NIGHT MEDS GIVEN WITH NO PROBLEMS. NO NEEDS ARE VOICED. WILL MONITOR. SIDE RAILS X 2. BED LOW. CALL LIGHT IN REACH.
[2017-01-22 04:00] VITALS: BP 120/50
[2017-01-22 08:30] VITALS: BP 95/47
--- NOTE | 2017-01-22 10:46 | NUR ---
NUTRITION MONITORING & EVAL CHART REVIEWED. PT VISIT. TOLERATING AHA DIET WITH GOOD INTAKE RECENT MEALS. RD FOLLOWING
[2017-01-22 19:00] VITALS: BP 107/52
[2017-01-22 19:07] VITALS: BP 115/67
--- NOTE | 2017-01-22 19:25 | NUR ---
RECIEVED SHIFT REPORT. PT IS LYING IN BED. ALERT AND ORIENTED AND ABLE TO VERBALIZE NEEDS. IV IS PATENT AND FLUIDS ARE RUNNING PER ORDER. PT IS AMBULATORY WITH ASSISTANCE. OXIMIZER @ 8. PT DENIES ANY PAIN AT THIS TIME. NO NEEDS ARE VERBALIZED AT THIS TIME. WILL CONTINUE TO MONITOR. SIDE RAILS ARE UP X 2. BED IS IN LOWEST POSITION. CALL LIGHT IS WITHIN REACH.
--- NOTE | 2017-01-22 21:07 | NUR ---
SHIFT ASSESSMENT COMPLETED. NIGHT MEDS GIVEN WITH NO PROBLEMS. NO NEEDS ARE VOICED. WILL MONITOR. SIDE RAILS X 2. BED LOW. CALL LIGHT IN REACH.
[2017-01-23 04:00] VITALS: BP 116/52
--- NOTE | 2017-01-23 07:30 | NUR ---
AWAKE AND ALERT. ORIENTED X3. NO C/O THIS AM. DENIES NEEDS. LUNGS ARE CLEAR BILATERALLY, NO COUGH NOTED. SKIN IS INTACT WITHOUT REDNESS. IV TO RIGHT FOREARM IS PATENT WITHOUT REDNESS AT INSERTION SITE. DENIES NEEDS.
--- NOTE | 2017-01-23 08:10 | NUR ---
SITTING UP ON SIDE OF BED ALERT AND ORIENTED. PT STATES "I AM WIRED AND CAN'T SEE STRAIGHT, I AM HAVING A TERRIBLE TIME." I OFFERED ASSISTANCE AND PT STATES "THERE IS NOTHING YOU CAN HELP ME WITH." GAVE PT CALL LIGHT AND INFORMED HER TO CALL IF SHE NEEDED ANYTHING. PT VERBALIZED UNDERSTANDING. WILL CONTINUE TO MONITOR.
[2017-01-23 08:18] VITALS: BP 118/66
--- NOTE | 2017-01-23 09:39 | NUR ---
ADMINISTERED MORNING MEDS WITHOUT DIFFICULTY. PT SEEMS TO IRRITABLE AND STRESSED ABOUT HER CURRENT HEALTH STATUS. PT STATES " I HAVE NO QUALITY OF LIFE AND TIRED OF LIVING THE WAY I AM." CLINIC SPECIALIST IS IN WITH PT NOW AND SPEAKING WITH HER. CALL LIGHT IN REACH.
--- NOTE | 2017-01-23 12:30 | NUR ---
LUNCH SERVED IN ROOM. DENIES NEEDS. AT BEDSIDE.
[2017-01-23 12:39] VITALS: BP 113/53; BP 147/65
--- NOTE | 2017-01-23 13:30 | NUR ---
ASSISTED TO BSC. VOIDED CLEAR YELLOW URINE [facility] PER SELF.
--- NOTE | 2017-01-23 13:54 | EC ---
PATIENT:TIRSOCULLEN MATOS LALY DATE OF SERVICE: 01/15/17 SEX: F MEDICAL RECORD: [id number] DATE OF : 43 LOCATION:D[id number] AGE OF PATIENT: 71 ADMISSION DATE: 01/15/17 REFERRING PHYSICIAN: INTERPRETING PHYSICIAN: MANDY MADERA MD ECHOCARDIOGRAM REPORT ECHO CHARGES 5 ECHO LIMITED CLINICAL DIAGNOSIS: SOB ECHOCARDIOGRAPHIC MEASUREMENTS (adult normal given) AC root (d.<3.7cm) 0 cm LV Septum d (<1.2 cm> 0 cm Valve Excursion 0 cm LV Septum (systole) 0 cm Left Atria (s.<4.0cm> 0 cm LVPW d(<1.2cm) 0 cm RV (d.<2.3cm) 0 cm LVPW (sytole) 0 cm LV diastole(<5.6CM) 0 cm MV E-F(>70mm/sec) 0 cm LV systole 0 cm LVOT Diameter 0 cm MV exc.(>10mm) 0 cm Est.ejection fraction (50-75%) % Pericardial Effusion N DOPPLER: LVIT cm/sec A 0 cm/sec E 0 cm/sec LA 0 cm/sec RVSP 0 mmHg LVOT 0 cm/sec AOP1/2T 0 m/s Asc. Ao 0 cm/sec RVOT 0 cm/sec RA 0 cm/sec PA 0 cm/sec AV Gradient Peak 0 mmHg AV Mean 0 mmHg AV Area 0 cm MV Gradient Peak 0 mmHg MV Mean 0 mmHg MV Area 0 cm COMMENTS: LIMITED STUDY (2-D ONLY) FOR BUBBLE STUDY Core Setter: Alli LEVIOE Patrol Police Sergeant: 1 Dr. Madera TAPE# PACS DATE OF SERVICE: 01/21/2017 Limited Echocardiogram for Bubble Study FINDINGS: There is a normal bubble study with no evidence of left to right or right to left shunt, no evidence of atrial septal or ventriculoseptal defect. TRANSINT:[id number] Voice Confirmation ID: [id number] DOCUMENT ID: [id number] ECHOCARDIOGRAM REPORT [id number] CULLEN CHAHAL JEFFREY MD at 1354 CC: [id number] DICTATION DATE: 01/21/17 1154 TOW TRUCK DRIVER: 01/21/17 1409 ADM IN [facility] [address] [place] [address]
--- NOTE | 2017-01-23 13:54 | EC ---
PATIENT:CULLEN CHAHAL LALY DATE OF SERVICE: 01/16/17 SEX: F MEDICAL RECORD: [id number] DATE OF : 43 LOCATION:[facility] [place] AGE OF PATIENT: 71 ADMISSION DATE: 01/15/17 REFERRING PHYSICIAN: INTERPRETING PHYSICIAN: MANDY MADERA MD ECHOCARDIOGRAM REPORT ECHO CHARGES 4 ECHO COMPLETE CLINICAL DIAGNOSIS: CHF ECHOCARDIOGRAPHIC MEASUREMENTS (adult normal given) AC root (d.<3.7cm) 2.7 cm LV Septum d (<1.2 cm> 1.1 cm Valve Excursion 1.7 cm LV Septum (systole) 1.8 cm Left Atria (s.<4.0cm> 3.2 cm LVPW d(<1.2cm) 1.0 cm RV (d.<2.3cm) 1.7 cm LVPW (sytole) 1.8 cm LV diastole(<5.6CM) 4.2 cm MV E-F(>70mm/sec) cm LV systole 1.8 cm LVOT Diameter 1.5 cm MV exc.(>10mm) cm Est.ejection fraction (50-75%) % Pericardial Effusion N DOPPLER: LVIT cm/sec A 50.0 cm/sec E 86.0 cm/sec LA cm/sec RVSP 23.1 mmHg LVOT 148 cm/sec AOP1/2T m/s Asc. Ao 133 cm/sec RVOT 81.0 cm/sec RA cm/sec PA 108 cm/sec AV Gradient Peak 7.0 mmHg AV Mean 4.3 mmHg AV Area 1.6 cm MV Gradient Peak 3.6 mmHg MV Mean 1.2 mmHg MV Area cm COMMENTS: Chief Of Vital Statistics: 1 ERICK LEVIOE Bonderite Operator: 1 Dr. [place] TAPE# PACS TWO-DIMENSIONAL ECHOCARDIOGRAM WITH DOPPLER 1. Left ventricular chamber size is within normal limits. Left ventricular systolic function is normal. Overall ejection fraction is estimated at 60 percent. 2. Left atrium, right atrium, and right ventricular chamber sizes are within normal limits. 3. Valvular structures have normal structure and motion. 4. Doppler interrogation only reveals trace aortic insufficiency, trace tricuspid regurgitation; no other valvular insufficiency or stenosis. 5. No evidence of pericardial effusion or left ventricular thrombus. ECHOCARDIOGRAM REPORT [id number] TIRSOMANDY OSEI MD at 1354 CC: [id number] DICTATION DATE: 01/16/17 1500 APPRENTICESHIP TRAINING REPRESENTATIVE: MARICEL 01/17/17 1406 ADM IN [place] [id number] [facility], [facility]901
--- NOTE | 2017-01-23 13:54 | CN ---
PATIENT NAME:CULLEN CHAHAL MEDICAL RECORD: [id number] : 43 LOCATION:D[id number] ADMIT DATE: 01/15/17 ACCOUNT: [id number] CONSULTING PHYSICIAN: MANDY LOPEZ MD REFERRING PHYSICIAN: DANIEL DIALLO MD CARDIOLOGY CONSULT PROBLEM LIST: 1. Shortness of breath. 2. Lung cancer. 3. Emphysema. 4. Chronic obstructive pulmonary disease. HISTORY OF PRESENT ILLNESS: The patient presents with shortness of breath. Chest x-ray suggested pulmonary edema. However, echocardiogram reveals an ejection fraction of 60% with no significant valvular heart disease. On the echocardiogram, her pulmonary pressures were not elevated as well. She does have a history of atrial fibrillation but has not had any of this since admission. She has a history of peripheral vascular disease but is stable from that standpoint. PHYSICAL EXAMINATION: HEAD, EYES, EARS, NOSE, AND THROAT: Benign. NECK: Supple. No jugular venous distention. Carotid upstroke plus two bilaterally without bruits. LUNGS: Overall clear to auscultation and percussion. HEART: Regular. Normal S1, normal S2. No S3, no S4. No murmurs. BONES, JOINTS, EXTREMITIES: No clubbing, cyanosis, or edema. OVERALL IMPRESSION: Shortness of breath, hypoxia. This is not congestive heart failure with a normal ejection fraction and normal valvular structures. Most likely it is chronic obstructive pulmonary disease and emphysema. MANDY LOPEZ MD at 1354 CC: [id number] DICTATION DATE: 01/16/17 1500 MEDIA CLERK: MARICEL 01/17/17 1409 ADM IN [place] [id number] [place] [address]
--- NOTE | 2017-01-23 15:57 | NUR ---
RESTING QUIETLY IN BED. NO C/O AT THIS TIME. DENIES NEEDS.
[2017-01-23 15:59] VITALS: BP 133/48
[2017-01-23 20:00] VITALS: BP 106/60
--- NOTE | 2017-01-23 20:00 | NUR ---
ASSESSMENT PER FLOWSHEET. O2 ON 8 L/M PER OXIMYZER HOB UP 40 DEGREES. BRACE TO LEFT WRIST FX SITE PT DOES NOT WEAR BRACE ALL OF THE TIME. SALINE LOCK PATENT RT FOREARM.TELM. SHOWS SR WITH HR 64.
--- NOTE | 2017-01-23 21:00 | NUR ---
MEDS GIVEN PER MAR.
--- NOTE | 2017-01-23 23:00 | NUR ---
REPOSITIONED IN BED FOR COMFORT. SR UP X2 CALL LIGHT WITHIN REACH.
[2017-01-24] VITALS (7 sets, daily range): BP systolic 87–131; BP diastolic 47–66
[2017-01-24 06:16] LABS: CALCIUM 8.1 mg/dL (8.5-10.1); CARBON DIOXIDE 30.1 mmol/L (21.0-32.0); POTASSIUM - SERUM 3.1 mmol/L (3.5-5.1)
--- NOTE | 2017-01-24 06:55 | NUR ---
LYING IN BED,WITHOUT DISTRESS.SLEEPING LEFT SIDE.CALL LIGHT IN REACH
--- NOTE | 2017-01-24 06:55 | NUR ---
LYING IN BED,WITHOUT DISTRESS.CALL LIGHT IN REACH
--- NOTE | 2017-01-24 07:00 | NUR ---
PT REC'D FROM KEESHA CABALLERO. AAOX4. UP AMBULATING AROUND ROOM. NO COMPLAINTS OF PAIN. REGULAR HEART RATE AND RHYTHM. BILAT CRACKLES NOTED TO UPPER LOBES OF LUNGS AND DIMINISHED THROUGHOUT. BOWEL SOUNDS ACTIVE X4 QUADS. ABD ROUND AND SOFT TO PALPATION. +2 PEDAL PULSES BILAT. O2 VIA OXYMIZER AT 5L. ATTEMPTING TO WEAN OFF. PIV TO R WRIST SALINE LOCKED AT THIS TIME. BED LOW, CALL LIGHT IN REACH, DENIES NEEDS. CPOC.
--- NOTE | 2017-01-24 09:15 | NUR ---
MORNING MEDS PASSED AT THIS TIME. TOLERATED WELL. FRESH WATER PROVIDED. TELEMETRY LEADS REPLACED. BED LOW, CALL LIGHT IN REACH, DENIES NEEDS. CPOC.
--- NOTE | 2017-01-24 13:50 | NUR ---
SCHEDULED MEDS ADMINISTERED AT THIS TIME. KEESHA AGUDELO, AND JUJU BOYD, AT BEDSIDE PROVIDING BED BATH AND COMPLETE LINEN CHANGE. ASSISTED BACK TO BED AND NEW JOSE BED ALARM MAT PLACED UNDER PT AT THIS TIME. BED LOW, CALL LIGHT IN REACH, DENIES NEEDS. CPOC.
--- NOTE | 2017-01-25 02:16 | NUR ---
ALERT & ORIENTED. RESTING QUIETLY IN BED RECEIVING BREATH TX. OXIMIZER @ 8L. NO OTHER NEEDS. WILL CONTINUE TO MONITOR.
[2017-01-25 04:06] VITALS: BP 101/52
[2017-01-25 06:20] LABS: ANION GAP 12.7 mmol/L (8-16); CALCIUM 8.6 mg/dL (8.5-10.1); CARBON DIOXIDE 29.1 mmol/L (21.0-32.0); CREATININE - SERUM 1.1 mg/dL (0.6-1.3); POTASSIUM - SERUM 3.8 mmol/L (3.5-5.1)
[2017-01-25 08:25] VITALS: BP 108/45
--- NOTE | 2017-01-25 09:10 | NUR ---
SCHEDULED MEDICATIONS ADMINISTERED AT THIS TIME. ASSESSMENT PERFORMED PER FLOWSHEET. OXYGEN ON 9L VIA OXYMIZER. DENIES PAIN OR NEEDS AT THIS TIME. BED ALARM ON. CALL LIGHT IN REACH. WILL CONTINUE WITH PLAN OF CARE.
[2017-01-25 12:21] VITALS: BP 103/53
[2017-01-25 16:08] VITALS: BP 101/60
[2017-01-25 20:00] VITALS: BP 115/50
[2017-01-26] VITALS: BP 137/53
[2017-01-26 04:00] VITALS: BP 122/51
--- NOTE | 2017-01-26 04:07 | NUR ---
1944)REC'D JOSE MAT ALARMING STANDING AT BEDSIDE. OXIMIZER AT9L. 02 SATS 96%ASSISTED TO BSC AND BACK TO BED BED REARMED.WILL CONTINUE TO MONITOR FOR ANY CHGES. IN RESP.STATUS AND FOLLOW CURRENT PLAN OF CARE
--- NOTE | 2017-01-26 08:00 | NUR ---
PT AOX2 RESP EVEN AND NONLABORED PT DENIES NEEDS AT THIS TIME IV TO RIGHT FOREARM PATENT AT THIS TIME SRX2 BED AT LOWEST SETTING CALL LIGHT WITHIN REACH WILL CONTINUE TO MONITOR
[2017-01-26 08:02] VITALS: BP 129/56
[2017-01-26 11:49] VITALS: BP 99/52
[2017-01-26 16:22] VITALS: BP 91/46
[2017-01-26 20:00] VITALS: BP 114/54
[2017-01-27] VITALS: BP 110/58
[2017-01-27 04:00] VITALS: BP 102/55
--- NOTE | 2017-01-27 04:28 | NUR ---
ASLEEP, CRULED UP IN A BALL. OXIMYZER IS ON ORDERED AND THERE IS NO RESPIRATORY DISTRESS NOTED. THE BED IS LOW, RAILS UP X'S 2 WITH THE CALL LIGHT AT HAND.
[2017-01-27 07:34] VITALS: BP 128/76
--- NOTE | 2017-01-27 07:34 | NUR ---
PATIENT BAND CUTTER LIGHT. ENTERED PATIENT ROOM AND PATIENT SITTING ON THE BSC. PATIENT VOIDED A SMALL AMOUNT AND HAD A SMALL BM. ASSISTED PATIENT BACK TO HER BED. VITAL SIGNS OBTAINED. AFEBRILE. TELEMETRY IN PLACE AND SHOWIN NORMAL SINUS RHYTHM WITH A RATE OF 75. PATIENT IS VERY [place] AND WEARS GLASSES. SALINE LOCK PATENET WITHOUT ANY S/S OF INFECTION NOTED IN PATIENT'S RIGHT FOREARM. JOSE BED ALARM IN PLACE FOR PATIENT'S SAFETY. PATIENT DENIES ANY FURHTER NEEDS AT PRESENT TIME. CALL LIGHT IN PATIENT'S REACH. WILL MONITOR PATIENT.
[2017-01-27 14:08] VITALS: BP 106/55
[2017-01-27 15:55] VITALS: BP 118/52
--- NOTE | 2017-01-27 16:58 | NUR ---
SCHEDULED MEDICATIONS GIVEN TO PATIENT. PATIENT SITTING UP IN BED AND WATCHING T.V. PATIENT DENIES ANY NEEDS AT PRESENT TIME. CALL LIGHT IN PATIENT'S REACH. WILL MONITOR.
[2017-01-27 20:00] VITALS: BP 97/56
[2017-01-28] VITALS: BP 97/42
--- NOTE | 2017-01-28 03:47 | NUR ---
EYES CLOSED RESPIRATIONS WITH EASE AND UNLABORED SR UP X2 CALL LIGHT WITHIN REACH.
[2017-01-28 04:00] VITALS: BP 102/59
--- NOTE | 2017-01-28 07:50 | NUR ---
ASSESSMENT COMPLETE. IV TO R FA PATENT. LINE INSTALLER SHOWING SR 65 PER TECH. O2 7L PER OXIMIZER. BED ALARM IN USE. DENIES ANY NEEDS AT PRESENT.
[2017-01-28 08:12] VITALS: BP 98/52
--- NOTE | 2017-01-28 10:25 | NUR ---
SITTING UP ON SIDE OF BED. WANTING TO GO HOME TODAY.
[2017-01-28 12:06] VITALS: BP 99/55
[2017-01-28] MEDS ORDERED: MEGACE40 MG PO (13:32)
[2017-01-28] MEDS ORDERED: BROVANA15 MCG/2 M INH (13:33)
[2017-01-28] MEDS ORDERED: IPRAT-ALBUT 0.5-3 ML UPD (13:33)
[2017-01-28] MEDS ORDERED: PLAVIX75 MG PO (13:33)
[2017-01-28] MEDS ORDERED: NORVASC5 MG PO (13:34)
[2017-01-28] MEDS ORDERED: ZOCOR20 MG PO (13:34)
[2017-01-28] MEDS ORDERED: ELIQUIS2.5 MG PO (13:34)
[2017-01-28] MEDS ORDERED: ZOLOFT50 MG PO (13:35)
[2017-01-28] MEDS ORDERED: PULMICORT0.5 MG/21 INH (13:35)
[2017-01-28] MEDS ORDERED: STERAPRED DS 1210 MG PO (13:37)
--- NOTE | 2017-01-28 14:02 | NUR ---
ADRIAN SPOKE WITH SAKINA TO LET HIM KNOW THAT IS HAS AN ORDER TO BE DISCHARDED. ADRIAN INFORMED HIM THAT HH & PT HAD BEEN SET UP WITH [facility] AND THAT THEY WILL BE OUT TOMORROW. RAY WITH JENNIFER ALSO HERE AND SET UP THE O2 AND STATED THAT HE WILL GO OUT TO THE PATIENTS HOUSE AND MAKE SURE HER HOME O2 IT TAKEN CARE OF. STATED THAT HE WILL BE AT 3:00
--- NOTE | 2017-01-28 15:00 | NUR ---
SL REMOVED. CATHETER TIP INTACT. CHANNEL MAN REMOVED.
--- NOTE | 2017-01-28 15:15 | NUR ---
SITTING UP ON SIDE OF BED. WAITING TO BE DC'D HOME. PORTABLE OXYGEN ALREADY DELIVERED.
--- NOTE | 2017-01-28 15:19 | NUR ---
HOME NEBULIZER SET UP PER DR SHEPARD'S ORDER BY JENNIFER. ORDER FAXED TO [facility]
--- NOTE | 2017-01-28 15:45 | NUR ---
DISCHARGE TEACHING GIVEN TO PATIENT AND . VOICED UNDERSTANDING.
--- NOTE | 2017-01-28 16:00 | NUR ---
DC'D HOME WITH FAMILY. ESCORTED TO VEHICLE BY RETAIL AGENT VIA WC WITH BELONGINGS AND PORTABLE OXYGEN.
--- NOTE | 2017-01-29 09:58 | NUR ---
late entry: PATIENT D/C HOME BY PRIVATE CAR, DRIVING. [facility] BROUGHT OXYGEN TO HOSPITAL AND [facility] WAS WAITING ON PATIENT AT THEIR HOME TO ARRIVE. [facility] WAS SET UP.
== END 2017-01-28 16:00 | disposition home health service (06) | DRG 189 ==
LOC: D.ER 12:17 → D.MS 20:13 → D.SDCHOLD 21:02 → D.MS 22:11
PROVIDERS: Emergency Medicine; Family Medicine; Internal Medicine Pulmonary Disease; ADMIT Family Medicine
DX: J96.01 Acute respiratory failure with hypoxia (principal); G93.41 Metabolic encephalopathy; J44.1 Chronic obstructive pulmonary disease with (acute) exacerbation; C34.90 Malignant neoplasm of unspecified part of unspecified bronchus or lung; I50.9 Heart failure, unspecified; E78.5 Hyperlipidemia, unspecified; I48.91 Unspecified atrial fibrillation; Z79.02 Long term (current) use of antithrombotics/antiplatelets; R91.1 Solitary pulmonary nodule; F10.10 Alcohol abuse, uncomplicated; Z87.891 Personal history of nicotine dependence; G47.33 Obstructive sleep apnea (adult) (pediatric); F03.90 Unspecified dementia, unspecified severity, without behavioral disturbance, psychotic disturbance, mood disturbance, and anxiety; K80.20 Calculus of gallbladder without cholecystitis without obstruction; E87.6 Hypokalemia

== ENCOUNTER → 2017-02-27 08:34 | Outpatient (CLI) | payer MEDICARE, OTHER ==
[2017-01-16 13:24] VITALS: BMI 19.9
[~2017-02-27 08:34] MED LIST changes: +STERAPRED DS 1210 MG PO
== END | disposition home or self-care (01) ==
LOC: D.RT 08:34
DX: R09.02 Hypoxemia (principal)

== ENCOUNTER → 2017-07-24 12:06 | Outpatient (CLI) | payer MEDICARE, OTHER ==
[2017-01-16 13:24] VITALS: BMI 19.9
== END | disposition home or self-care (01) ==
LOC: D.RAD 07-05 10:00
DX: C34.90 Malignant neoplasm of unspecified part of unspecified bronchus or lung (principal)

== ENCOUNTER → 2018-09-12 08:46 | Outpatient (CLI) | payer MEDICARE, OTHER ==
[2017-01-16 13:24] VITALS: BMI 19.9
== END | disposition home or self-care (01) ==
LOC: D.RT 08:46
PROVIDERS: ATTEND Internal Medicine Pulmonary Disease
DX: J44.9 Chronic obstructive pulmonary disease, unspecified (principal); C34.90 Malignant neoplasm of unspecified part of unspecified bronchus or lung